=== PATIENT | female | born 1945 | race Caucasian/White ===

== ENCOUNTER 2016-04-22 23:39 | Inpatient (IN) | payer MEDICARE ==
[~2016-04-22] VITALS: Ht 170.2 cm; Wt 86.6 kg
--- NOTE | 2016-04-22 23:40 | ED.REPORT ---
HPI-Chest Pain 40 and Over Date of Service Apr 22, 2016 ED Provider: Drew Ramachandran MD Patient is a 70 year old female who presents to the ED via EMS after she developed severe chest pressure this evening. The patient requested that her family call 911, stating that she was having a heart attack. Patient was found to be diaphoretic and distressed, with the patient incontinent of urine and stool. Patient was not responsive to commands, fighting, and nonverbal. The patient refused aspirin. EKG showed changes consistent with an inferior wall OR and the STEMI team was called. She was bradycardic and mildly hypotensive enroute. Patient is able to speak on arrival to the ED but states that she does not understand what is happening. Patient denies a history of heart disease or prior myocardial infarction. Nursing Notes Stated Complaint: STEMI/CHEST PAIN Nursing Notes Reviewed: Yes General Time Seen by MD: 23:38 Chief Complaint Chest pressure Hx Obtained From: EMS Unable to Obtain Hx: Patient condition, Mental status Arrived By: Ambulance Sudden in Onset?: No Onset Occurred: Just prior to arrival Symptom Duration: Since onset Location: : Chest left: Chest right Quality: Painful Severity: Current: Severe Severity: Maximum: Severe Recent Healthcare: No recent doctor visit, No recent hospitalization Similar Sx Previous: No Past Medical History Past Medical History none reported Past Surgical History none reported Smoking History Unknown if Ever Smoker Social History Other Social History: Good social support, Local resident Unable to Obtain History Past medical history, Past surgical history Unable to Obtain Due to: Patient condition Review of Systems Unable to Obtain ROS Mental status Cardiovascular: Reports: Chest pain Skin: Reports Diaphoresis Neurologic: Reports: Bladder dysfunction, Bowel dysfunction Female: Reports: Incontinence Physical Exam Initial Vital Signs see paper chart Initial VS: Reviewed, Vital signs abnormal Head / Eyes: Atraumatic, Normocephalic, PERRL ENT: Conjunctiva normal, No scleral icterus General/Constitutional: Awake, Alert appears disoriented and is having difficulty answering questions incontinent of urine and stool Respiratory / Chest: Breath sounds NL, Breath sounds = bilat, No respiratory distress, No rales, No rhonchi, No wheezing Cardiovascular: Heart sounds NL, No gallop, No murmurs, No rubs Heart Rate / Rhythm: Positive: Bradycardia, Irregular rhythm (occasional PVCs) Abdomen: Soft, Non-tender, No guarding, No rebound Neck: Supple, No JVD Lower Extremity / Pelvis / MS: No swelling, Neurologic intact, Vascular intact , No edema brace left ankle Skin: Warm Color / Condition: Positive: Diaphoresis present Neurologic: No motor deficits, No sensory deficits, CN II - XII intact appears disoriented Upper Extremity / MS: No swelling, No edema Interpretation & Diagnostics Lab Results Interpretation Result Diagram: 04/22/16 2353 Test 04/22/16 23:53 White Blood Count 9.0th/mm3 (3.8-10.1) Red Blood Count 4.31mil/mm3 (3.90-5.20) Hemoglobin 13.0g/dL (12.0-15.6) Hematocrit 39.4% (35.0-46.0) Mean Corpuscular Volume 91.4fL (81-100) Mean Corpuscular Hemoglobin 30.2pg (27.0-35.0) Mean Corpuscular Hemoglobin Concent 33.0% (32.0-37.0) Red Cell Distribution Width 13.8% (12.3-15.4) Platelet Count 285bil/L (150-400) Neutrophils (%) (Auto) 49.5% (40-74) Lymphocytes (%) (Auto) 43.3% (14-46) Monocytes (%) (Auto) 5.5% (4-12) Eosinophils (%) (Auto) 1.1% (0-5) Basophils (%) (Auto) 0.4% (0-3) Troponin T 0.010ug/L (0.0-0.011) Lab values outside NL range: no clinical significance. ECG Interpretation ECG Interpretation: Acute inferior wall OR AV block, complete (third degree) Incomplete right bundle branch block LVH with IVCD, LAD and secondary repol abn Anterior ST elevation Time: 23:50 Interpreted by: ED physician X-Ray Chest Interpretation Chest Xray Interpretation: Impression: No acute cardiopulmonary process. View: Portable Interpretation / Wet Read by: Wet read ED physician Re-Eval/Medical Decision Med Decision/Clinical Course 70-year-old female who had onset of crushing substernal chest pain or some confusion and incontinence. She was found to have a inferior lateral STEMI. She was bradycardic and hypotensive. She was at one point combative. EKG upon arrival here confirmed inferior OR. Dr. Orr was notified and the cath team was activated. She was given aspirin Plavix 600 and IV heparin. She was not given nitrates or metoprolol because of her hypotensive and cardiac. Dr. Orr arrived to assume care of this patient and took her to the Branch Employment Coordinator. Time of Eval: 23:59 Re-Evaluation/Progress Note: Rechecked the patient. She reports ongoing chest pressure. Patient is able to clarify that she lives with her grandson. Time of Eval: 00:06 Re-Evaluation/Progress Note: Rechecked the patient with Dr. Crespo. Patient will be taken to the wharf laborer and be admitted to the hospital. Consultation : Referral / Consult Name: Nancy Christian MD Consulted With: Cardiology Call Returned at: 00:06 Bill Recapitulation Clerk: Will see patient, Agrees with eval, Agrees with plan, Requested wharf laborer Note: Dr. Crespo, cardiology, is present in the ED. He will take the patient to the wharf laborer. Counseled Regarding: Diagnosis, Lab results, Need for admission Discharge & Departure Primary Impression: STEMI (ST elevation myocardial infarction) Involved coronary artery: unspecified coronary artery Qualified Code: I21.3 - ST elevation (STEMI) myocardial infarction of unspecified site Disposition: ADMITTED TO HOSPITAL Discharge Condition All VS Reviewed: Yes Condition: Stable Crit Care Except Billable Proc Time Spent: 30-74 minutes Services Performed: Patient management by me, Time spent at bedside, Reviewing test results, Reviewing imaging, Discussing patient care, Documentation in record, Time with fam/surrogate Critical Care Notes: Bradycardic and hypotensive patient with STEMI taken to the Branch Employment Coordinator. Leatha Attestation Portions of this note were transcribed by Mae Young. I, Dr. Ramachandran personally performed the history, physical exam and medical decision-making; I reviewed and confirmed the accuracy of the information in the transcribed note. Signed by: Leatha Carpenter, 04/23/2016 0019 Drew Ramachandran MD Apr 22, 2016 23:40 Mae Young Apr 22, 2016 23:51
[2016-04-22] MEDS ORDERED: MeTOProlol 1 mg/mL 5 mL Inj ONE (23:42)
[2016-04-22] MEDS ORDERED: Nitroglycerin 50,000 mcg/250 mL D5W Premix IV ONE ×2 (23:42→23:54)
[2016-04-22] MEDS ORDERED: Nitroglycerin 2% 1 Gm Ointment TOPICAL ONE (23:42)
[2016-04-22] MEDS ORDERED: Ondansetron 2 mg/mL 2 mL Inj ONE (23:43)
[2016-04-22] MEDS ORDERED: Heparin 5,000 Unit/mL Inj ONE (23:44)
[2016-04-22 23:46] VITALS: BP 90/47; PULSE 44; RESP 21; O2SAT 95
[2016-04-22] MEDS ORDERED: Heparin 1,000 Units/500 mL NS Premix IV ONE (23:53)
[2016-04-22] MEDS ORDERED: Heparin 1,000 Unit/mL 10 mL Inj ONE (23:54)
[2016-04-22] MEDS ORDERED: Atropine 1 mg/10 mL (Code) Syringe ONE (23:54)
[2016-04-22] MEDS ORDERED: 0.9% Sodium Chloride 1,000 ML ONE (23:54)
[2016-04-22] MEDS ORDERED: Phenylephrine/NS-PF 100 mCg/mL 5 mL Syringe IVPUSH ONE (23:54)
[2016-04-22] MEDS ORDERED: Heparin 5,000 Units/500 mL NS Premix IV ONE (23:59)
[2016-04-23] VITALS (29 sets, daily range): BP systolic 103–152; BP diastolic 47–95; PULSE 59–75; RESP 12–25; O2SAT 95–99
[2016-04-23] LABS: BASOPHILS % (AUTO) 0.4 % (0-3); EOSINOPHILS % (AUTO) 1.1 % (0-5); MONOCYTES % (AUTO) 5.5 % (4-12); Mean Corpuscular Hemoglobin 30.2 pg (27.0-35.0); Mean Corpuscular Volume 91.4 fL (81-100); NEUTROPHILS % (AUTO) 49.5 % (40-74); Platelet Count 285 bil/L (150-400)
[2016-04-23 00:20] LABS: INR 0.94 ratio
[2016-04-23] MEDS ORDERED: fentaNYL-PF 50 mCg/mL 2 mL Inj ONE (00:22)
[2016-04-23 00:24] LABS: TROPONIN T 0.01 ug/L (0.0-0.011)
[2016-04-23] MEDS ORDERED: Heparin 1,000 Unit/mL 10 mL Inj ONE (00:37)
[2016-04-23] MEDS ORDERED: Ondansetron 2 mg/mL 2 mL Inj IVPUSH PRN (01:45)
[2016-04-23] MEDS ORDERED: Polyethylene Glycol (PEG) 17 Gm Powder PO PRN (01:45)
[2016-04-23] MEDS ORDERED: Alum-Mag Hydrox-Simeth 30 mL Suspension PO PRN (01:45)
[2016-04-23] MEDS ORDERED: Atropine 1 mg/10 mL (Code) Syringe IVPUSH PRN (02:45)
[2016-04-23] MEDS ORDERED: 0.9% Sodium Chloride 1,000 ML IV ONE (02:45)
[2016-04-23] MEDS ORDERED: Sodium Chloride LOK Flush 10 mL Syringe IVFLUSH PRN (02:45)
[2016-04-23] MEDS ORDERED: 0.9% Sodium Chloride 250 ML BOLUS IV PRN (02:45)
[2016-04-23 04:17] LABS: Magnesium 1.8 mg/dL (1.6-2.6)
[2016-04-23 04:23] LABS: TROPONIN T 3.37 ug/L (0.0-0.011)
--- NOTE | 2016-04-23 05:20 | DI95 ---
[address] [address] INTERVENTIONAL CARDIAC CATHETERIZATION PATIENT: TIFFANY BURROUGHS : 1945 MR#: [id number] ADMIT: 04/22/2016 JOB ID: [id number] CORRECTED REPORT DATE OF PROCEDURE: 04/23/2016 PATIENT PROFILE: The patient is a 70-year-old lady who presented with acute inferolateral myocardial infarction. PROCEDURE: 1. Temporary transvenous pacer placement. 2. Retrograde left heart catheterization. 3. Selective coronary angiography. 4. Balloon angioplasty and stenting to the proximal right coronary artery. 5. Left ventricular angiogram. VASCULAR CLOSURE DEVICE: StarClose. COMPLICATIONS: None. METHOD: Arterial and central venous access was obtained from the right groin under 1% lidocaine local anesthesia using a 6-Cypriot sheath in the artery and a 5-Cypriot sheath int the venous. This was performed under ultrasound guidance. A 5- Cypriot temporary transvenous wire was directed into the right ventricular apex under fluoroscopy. The temporary transvenous pacer was then set at 75 beats per minute. Selective coronary angiogram was performed in multiple projections, including cranial and caudal angulations with hand injected contrast via JL4 and JR4 catheters. A JR4 guide was advanced to the right coronary ostium. A Runthrough wire was placed inside the right coronary artery. The proximal right coronary artery lesion was pre-dilated with a 2.0, 2.5 and a 3.0 mm balloons. A Resolute Integrity 2.5 x 22 mm stent was placed inside the proximal mid right coronary artery lesion and deployed at 14 atmospheres for 20 seconds. Another Resolute Integrity 2.5 x 22 mm stent was placed proximal to the first stent and deployed at 14 atmospheres for 20 seconds. A 3.0 x 20 mm balloon was used for post stent deployment dilation. It was inflated up to 12 atmospheres inside the stent and 16 atmospheres to flare out the right coronary ostium. A 5-Cypriot angulated pigtail catheter was advanced to the left ventricle and left ventricular angiogram was performed in the 30-degree SHOOK view by injecting contrast at a rate of 10 cc/second for 3 seconds. This catheter was withdrawn. Right femoral angiogram was performed before sheath removal. Hemostasis was achieved by using a StarClose device. The patient tolerated the procedure well. She was transferred to the intensive care unit in good condition. TOTAL CONTRAST USED: 140 cc. FLUOROSCOPY TIME: 7.9 minutes. TOTAL RADIATION DOSE: 287 milligray. RESULTS: 1. Successful temporary transvenous pacer placement. 2. Selective coronary angiogram: a. Left main coronary artery is normal. b. The left anterior descending artery is transapical and has mild to moderate calcification in the proximal portion with eccentric 30% stenosis in the proximal portion and 50% stenosis in the mid portion and 60% stenosis in the distal portion. c. The circumflex and obtuse marginal branches are small and has 30% stenosis. d. The dominant right coronary artery is occluded at its origin. 3. Balloon angioplasty and stenting was performed to the occluded right coronary artery ostium by deploying two drug-eluting stents, (2.5 x 22 mm and 2.5 x 22 mm with a 3.0 mm balloon for post stent dilation) to achieve an excellent angiographic result with REYNALDO-3 flow distally. 4. There is no gradient across the aortic valve on catheter withdrawal. 5. Aortic pressure is 114/60 mmHg. Left ventricular pressure is 119/0 mmHg. 6. Left ventricular end-diastolic is 19 mmHg. 7. Left ventricular angiogram demonstrated near-normal left ventricular systolic function (LVEF 62%). The middle third of the inferior wall is severely hypokinetic. The remaining segments contract normally. CONCLUSION: 1. Moderate disease of the left anterior descending and circumflex artery. 2. Occluded right coronary ostium and this was successfully treated with two drug-eluting stents. 3. LVEF 62% with the middle third of the inferior wall severely hypokinetic. 4. Left ventricular end-diastolic is 19 mmHg. Note: The door to balloon time was delayed for 15 minutes for cleaning as the patient moved her bowel. Corrected by 06/03/16 at 9:37am DOS. MTDD
--- NOTE | 2016-04-23 06:08 | NUR ---
Admit note: Post cath Admitted to CCU 2018 from laboratory machinist at 0200. Denies chest pain or discomforts. Right groin site stable without hematoma or bleeding. Right groin venous sheath in place with pacer wires in place with temp pacer off. Tele sinus rhythm with hr 70s. Sats high 90s. Ivf NS started 100ml/h. Alert and oriented upon admit. Salvatore Pyle, called and updated per pt request. Post cath checks completed 0600. Remains on precautions with venous sheath. Plans to d/c pacer this am.
--- NOTE | 2016-04-23 06:56 | HP ---
[address] [address] HISTORY AND PHYSICAL PATIENT: TIFFANY BURROUGHS : 1945 MR#: [id number] ADMIT: 04/22/2016 JOB ID: [id number] CHIEF COMPLAINT: Chest discomfort. HISTORY: The patient is a 70 years old lady who has been healthy all her life. She is a lifelong smoker. The patient was in her usual state of health until this evening when she suddenly developed chest discomfort. It was pressure type. She rated it about 8 to 9/10. It was associated with dyspnea and nausea. She told her grandson to call medics because she thought that she was having a heart attack. EKG by the medics at 11:30 p.m. showed sinus bradycardia with complete heart block with a ventricular escape rate of 40 beats per minute. Inferior ST-segment elevation. STEMI protocol was activated. The patient arrived in the emergency department at 11:47 p.m. EKG showed sinus rhythm with complete heart block, right bundle branch block. Inferolateral ST-segment elevation. PAST MEDICAL HISTORY: None. MEDICATIONS PRIOR TO HOSPITALIZATION: None. ALLERGIES: PENICILLIN. SOCIAL HISTORY: She started smoking when she was 25 years old. She smoked an average of about one pack per day. She stated she smoked about 30 years and still smokes. She denies alcohol. FAMILY HISTORY: Her father from congestive heart failure. REVIEW OF SYSTEMS: Unobtainable due to the urgency of clinical situation. PHYSICAL EXAMINATION: Reveals an elderly, overweight lady, appears drowsy. Temperature is 35.8. Blood pressure is 98/54. Pulse is 38. Skin is cool and moist. Head and face have normal configuration. Anicteric sclerae. Dry mucosa. Neck supple. No jugular venous distention or carotid bruits. Chest: Normal expansion. Lungs are clear to auscultate. Heart: Distant heart sounds. No murmur. Abdomen: Obese, nontender. Extremities: Clubbing present. No cyanosis or edema. Neurology: Drowsy but responds to verbal command. IMPRESSION: 1. Acute inferolateral myocardial infarction. 2. Complete heart block with ventricular escape rate of 38 beats per minute. 3. Nicotine addiction. 4. Unknown lipid status. 5. Overweight. PLAN: The patient will undergo emergent coronary angiogram and possible percutaneous intervention. She will also receive a temporary transvenous pacemaker. BRANDON
--- NOTE | 2016-04-23 08:11 | DRSVH ---
PROCEDURE: X-RAY CHEST ONE VIEW, PORTABLE ([id number]) INDICATIONS: CHEST PAIN, STEMI TECHNIQUE: One view of the chest was acquired. COMPARISON: None. FINDINGS: Surgical changes and devices: None. Lungs and pleura: No pleural effusions or pneumothorax. Lungs are clear. Mild scattered scarring/a telectasis Mediastinum: Mediastinal contours appear normal. Heart size is normal. Bones and chest wall: No suspicious bony lesions. Overlying soft tissues appear unremarkable. IMPRESSION: No acute disease Dictated by: Marlon Figueroa M.D. on 04/23/2016 at 8:09 Approved by: Marlon Figueroa M.D. on 04/23/2016 at 8:09
[2016-04-23 10:32] LABS: TROPONIN T 8.05 ug/L (0.0-0.011)
--- NOTE | 2016-04-23 11:46 | PROG NOTE ---
[address] [address] PROGRESS NOTE PATIENT: TIFFANY BURROUGHS : 1945 MR#: [id number] ADMIT: 04/22/2016 JOB ID: [id number] DATE: 04/23/2016 SUBJECTIVE: The patient is a 70-year-old lady who is a lifelong smoker. She presented with acute inferolateral myocardial infarction complicated by complete heart block yesterday. She underwent emergent angioplasty and stent placement to the occluded right coronary artery with two drug-eluting stents. The patient reports feeling much better today. She is tired and sleepy. She denies chest discomfort, orthopnea or PND. OBJECTIVE: Temperature is 36.5. Blood pressure is 139/75. Pulse 72. Body weight is 85.2 kg. Head and face have normal configuration. Anicteric sclerae. Moist mucosa. Neck: No jugular venous distention. Lungs are clear to auscultation. Heart: Distant heart sounds. No murmur. Extremities: Clubbing of fingers present. No cyanosis or edema. Neurologic: Grossly intact. BLOOD TESTS: Show hemoglobin 13.0, WBC 9.0, platelet 285. Sodium 140, potassium 3.8, chloride 102, bicarbonate 18, BUN 12, creatinine 0.96. Glucose 158. CK went up to 2,491 with a troponin T went up to 8.05. Cholesterol 227, triglycerides 75, HDL 54, LDL 158. IMPRESSION: 1. Acute inferolateral myocardial infarction, treated with two drug-eluting stents. 2. Complete heart block requiring temporary transvenous pacer, recover. 3. Nicotine addiction. 4. Hypercholesterolemia. 5. Overweight with BMI of 29.4 kg/m2. PLAN: Temporary transvenous pacer wire will be removed. The patient could be transferred to [facility]. I will start her on metoprolol 25 mg b.i.d. She will continue on aspirin, Plavix, RADHA inhibitor and statin. MTDD
--- NOTE | 2016-04-23 13:36 | NUR ---
Sheath removed/downgrade to PCC general production laborer assisted with removal of venous sheath of temporary pacer leads at 1210. Pt tolerated well, had 2 beats of v-tach during removal. Held pressure for 5 minutes, minimal bleeding. Dry gauze and bio-occlusive dressing applied. See post cath intervention and CCU flow sheet for vitals. Per Dr Sun, monitor for one hour then change to PCC. Report passed to Beverly Camacho RN.
[2016-04-23 15:39] LABS: TROPONIN T 6.89 ug/L (0.0-0.011)
[2016-04-24 00:23] VITALS: BP 123/59; PULSE 63; RESP 17; O2SAT 98
[2016-04-24 03:58] VITALS: BP 121/60; PULSE 58; RESP 19; O2SAT 97
[2016-04-24 05:10] LABS: BASOPHILS % (AUTO) 0.2 % (0-3); EOSINOPHILS % (AUTO) 0.9 % (0-5); MONOCYTES % (AUTO) 6.6 % (4-12); Mean Corpuscular Hemoglobin 29.8 pg (27.0-35.0); Mean Corpuscular Volume 90.4 fL (81-100); NEUTROPHILS % (AUTO) 65.1 % (40-74); Platelet Count 204 bil/L (150-400)
--- NOTE | 2016-04-24 05:29 | NUR ---
Rest and groin site. Patient rested well throughout the night and reported being free of pain. Patient was able to move to the bed side commode with the help of one person. Patient's groin site is free of bleeding and swelling. Patient denies pain. CMS is intact in all extremities.
[2016-04-24 06:08] VITALS: PULSE 61
[2016-04-24 09:29] VITALS: PULSE 60
--- NOTE | 2016-04-24 10:18 | NUR ---
Social Work: Initial Assessment D: Per EMR review, pt is a 70 year old female admitted for STEMI. Pt is Medicare with no LTC insurance or VA benefits. Pt does not have a PCP- information for [facility] provided to pt. NOK is Escobar Jernigan, Son, . Advanced directives not completed- information provided to pt. Readmit score is low, 02/21. REWORK OPERATOR met with pt at bedside. Sw role and contact information provided. See initial assessment. Pt lives at home with her grandson in a single-story home with 2 steps to enter. Pt is I with ADLs, uses no DME and continues to drive. Pt has never had HH or Skilled rehab. Pt denies any sw needs at d/c and states her son will transport her when ready. EMR reviewed, no needs or barriers identified at this time. A: Pt who is I at baseline. P: Anticipate pt to discharge home via POV once medically stable; REWORK OPERATOR to continue to follow CONNER Weiss Addendum: 04/24/16 at 1023 by SANDRA WOODRUFF Amended: Links added.
--- NOTE | 2016-04-24 10:24 | NUR ---
[facility] Signed
[2016-04-24 12:24] VITALS: BP 133/68; PULSE 61; RESP 18; O2SAT 98
--- NOTE | 2016-04-24 12:49 | DRSVH ---
Former[facility] [address] [address] Echocardiogram Report Name: TIFFANY BURROUGHS JStudy Date: 04/24/2016 Height: 67 in Hospital Exam Location: [facility] Weight: 191 lb Gender: Other BSA: 2. 0 m2 : 1945 Age: 70 yrs BP: 131 /62 mmHg Reason For Study: post-STEMI Ordering Physician: Performed By: Chris Peralta Referring Physician: BIJAN SIMON Interpretation Summary The left ventricle is normal in size. There is mild concentric left ventricular hypertrophy. The ejection fraction is estimated to be 55-60%. There is basal posterolateral wall mild hypokinesis. There is basal inferior wall mild hypokinesis. Assessment of diastolic parameters indicates normal left ventricular diastolic function and normal filling pressures. The right ventricular systolic pressure is estimated at 44 mmHg assuming a right atrial pressure of 15 mm Hg. The IVC is dilated (diameter is greater than 2.1 cm) and it collapses less than 50% with a sniff. This suggests a high right atrial pressure of 15 mm Hg. No other echocardiographic abnormalities seen. Procedure: A two-dimensional transthoracic echocardiogram with color flow and Doppler was performed. The study quality was technically adequate. A contrast injection of Definity was performed to improve assessment of LV function. There is no prior echocardiogram noted for this patient. The patient was in normal sinus rhythm during the exam. Left Ventricle: The left ventricle is normal in size. There is mild concentric left ventricular hypertrophy. The ejection fraction is estimated to be 55-60%. There is basal posterolateral wall mild hypokinesis. There is basal inferior wall mild hypokinesis. Assessment of diastolic parameters indicates normal left ventricular diastolic function and normal filling pressures. Right Ventricle: The right ventricle is normal size. Right ventricular systolic function is at the lower limits of normal. Atria: The left atrial size is normal. Right atrial size is normal. The interatrial septum is intact with no evidence for an atrial septal defect. Mitral Valve: The mitral valve leaflets appear borderline thickened, but open well. There is mild mitral annular calcification. There is mild mitral regurgitation. Aortic Valve: The aortic valve is normal in structure and function. No aortic regurgitation is present. Tricuspid Valve: The tricuspid valve is normal. There is mild tricuspid regurgitation. The right ventricular systolic pressure is estimated at 44 mmHg assuming a right atrial pressure of 15 mm Hg. Pulmonic Valve: The pulmonic valve is not well visualized. Great Vessels: The aortic root is normal size. The dimensions of the ascending aorta are normal. The pulmonary artery is normal size. The IVC is dilated (diameter is greater than 2.1 cm) and it collapses less than 50% with a sniff. This suggests a high right atrial pressure of 15 mm Hg. Pericardium/ Pleura There is no pericardial effusion. There is no pleural effusion. MMode/2D Measurements & Calculations LVIDd: 4.5 cm RA long axis: 4.8 cm LVOT diam LVIDs: 3.4 cm LA A2 area: 17.9 cm FS: 24.7 % LA A4 area: 19.9 cm RA area: 17.2 cm AoV Opening EPSS: 0.59 cm LA length (vol): 5.4 cm RA vol: 52.4 ml IVSd: 1.0 cm LA vol: 56.0 ml RA : 26.4 ml/m2 Ao root diam LVPWd: 1.1 cm LA vol index: 28.2 ml/m asc Aorta Diam IVC diam: 2.8 cm EDV(MOD-sp2) LV monzon. diameter/BSA LV sys. diameter/BSA TAPSE: 1.8 cm (cm/m^2): 2.3 (cm/m^2): 1.7 Doppler Measurements & Calculations Ao V2 max: 141.6 cm/secMV E max fredy MV E/A: 1.2 TR max fredy Ao max P.0 mmHg : 91.5 cm/sec Med Peak E' Fredy : 268.7 cm/sec Ao mean P.2 mmHg MV A max fredy TR max PG LVOT Max Fredy : 78.6 cm/sec E/E' med: 20.2 : 28.9 mmHg : 103.9 cm/sec Lat Peak E' Fredy PA V2 max : 81.3 cm/sec LUKE(I,D): 2.1 cm E/E' lat: 18.5 PA mean PG sev ratio: 0.68 E/e' average : 1.5 mmHg MV dec time: 0.20 sec Ao V2 mean LV V1 max PG PA V2 mean : 96.0 cm/sec : 58.6 cm/sec Ao V2 VTI LV V1 VTI: 19.5 cmPA pr(Accel) : 18.3 mmHg LUKE(V,D): 2.2 cm2 LUKE indexed to BSA (cm^2/m^2): 1.0 Reading Physician:12:49 PM
[2016-04-24] MEDS ORDERED: ATOR40TA69 PO (14:22)
[2016-04-24] MEDS ORDERED: LISI-571 PO (14:22)
[2016-04-24] MEDS ORDERED: ATEN50TA PO (14:22)
[2016-04-24] MEDS ORDERED: CLOP75TA28 PO (14:22)
--- NOTE | 2016-04-24 14:26 | PCM.DIMED ---
Discharge Instructions Date of Service Apr 24, 2016 Dates of Hospitalization Apr 22, 2016 at 23:58 Discharge Diagnosis Discharge Diagnosis Inferior Heart Attack with Drug coated stent to the right coronary artery Medication Instructions Take a regular adult aspirin every day in addition to your other medications Diet Heart Healthy Call your provider Shortness of breath, Chest pain Patient Instructions Follow-up plan Please call our office at [phone] and ask for an appointment with one of our PA's within the next two weeks. Follow-up Provider: Nancy Christian MD Follow-up with PCP in: 6 weeks Cardiac Rehab: 1 week Finn Daly MD Apr 24, 2016 14:26
--- NOTE | 2016-04-24 14:45 | NUR ---
Discharge Discharge instruction packet and prescriptions reviewed in detail w/ pt, including MD appt. for followup. VVS, up ambulating in brody x400ft without difficulty. Smoking Cessation teaching completed, packet given to pt. All belongings with pt; discharged via w/c accompanied by staff to waiting vehicle, driven by pt's son.
--- NOTE | 2016-04-24 16:02 | DIS ---
[address] [address] DISCHARGE SUMMARY PATIENT: TIFFANY BURROUGHS : 1945 MR#: [id number] ADMIT: 04/22/2016 JOB ID: [id number] DIS: 04/24/2016 DISCHARGE DIAGNOSES: Acute ST-elevation inferior myocardial infarction complicated by third-degree heart block. HOSPITAL COURSE: The patient presented by paramedics to [facility] late in the evening of April 22 with an acute inferior myocardial infarction complicated by third-degree heart block. A temporary transvenous pacemaker was placed by Dr. Christian, who subsequently then proceeded to the catheterization lab and found a totally occluded right coronary artery. She received a 2.5 x 22 mm stent in the proximal right coronary artery and a 2nd drug-coated stent, 2.5 mm x 22 mm placed proximal to the 1st stent and deployed. She was observed overnight and subsequently her temporary transvenous pacemaker lead was removed and she was ambulated. This morning she is feeling quite well. She has no problems from her right groin access and has been ambulatory in the hallway without any problems. She is anxious to go home. This patient will be discharged home on once-a-day medications since she is not used to taking any medication at home. DISCHARGE MEDICATIONS: Will include: 1. Atenolol 50 mg a day. 2. Atorvastatin 40 mg a day. 3. Lisinopril 5 mg a day. 4. Clopidogrel 75 mg daily. 5. She is also asked to take 325 mg of aspirin daily. She will be asked to contact our office to schedule a followup with our physician teacher assistant within the next couple of weeks and will follow up with Dr. Christian in 6-8 weeks. She will also be scheduled for outpatient cardiac rehab. She is encouraged to continue with smoking cessation and advised about the importance of taking her clopidogrel on a regular daily basis along with the rest of her medications.
== END 2016-04-24 15:07 | disposition home or self-care (01) | DRG 247 ==
LOC: SED 23:39 → CCU 23:58 → PCC 04-23 13:10
PROVIDERS: ADMIT Internal Medicine Interventional Cardiology; ATTEND Internal Medicine Interventional Cardiology
PROC: 027035Z Dilation of Coronary Artery, One Artery with Two Drug-eluting Intraluminal Devices, Percutaneous Approach (ICD-10-PCS; principal; 2016-04-23)
PROC: 4A023N7 Measurement of Cardiac Sampling and Pressure, Left Heart, Percutaneous Approach (ICD-10-PCS; 2016-04-23)
PROC: 5A1213Z Performance of Cardiac Pacing, Intermittent (ICD-10-PCS; 2016-04-23)
PROC: B2111ZZ Fluoroscopy of Multiple Coronary Arteries using Low Osmolar Contrast (ICD-10-PCS; 2016-04-23)
PROC: B2151ZZ Fluoroscopy of Left Heart using Low Osmolar Contrast (ICD-10-PCS; 2016-04-23)
DX: I21.19 ST elevation (STEMI) myocardial infarction involving other coronary artery of inferior wall (principal); I44.2 Atrioventricular block, complete; F17.210 Nicotine dependence, cigarettes, uncomplicated; I25.10 Atherosclerotic heart disease of native coronary artery without angina pectoris; E78.00 Pure hypercholesterolemia, unspecified

== ENCOUNTER 2016-07-26 17:02 | Inpatient (IN) | payer MEDICARE ==
[~2016-07-26] VITALS: Ht 170.2 cm; Wt 76.1 kg
[~2016-07-26 17:02] MED LIST: ATEN50TA PO; ATOR40TA69 PO; CLOP75TA28 PO; LISI-571 PO
--- NOTE | 2016-07-26 17:15 | ED.REPORT ---
HPI-General Illness Date of Service Jul 26, 2016 ED Provider: Dejan Meyers MD The patient is a 70 year old female with a history of STEMI s/p cardiac stenting who presents to the ED via EMS with a right-sided facial droop onset approximately 10:00 this morning, upon awakening. Associated symptoms include right arm weakness and speech change. The patient also reports waking up this morning to bilateral jaw pain and noticing that her teeth implants had fallen out, which she was unable to find. The patient denies shortness of breath, chest pain, abdominal pain, vision change, fever, cough, problems with ambulation, or other symptoms. Her symptoms have improved since onset. She has never had similar symptoms in the past. Nursing Notes Stated Complaint: STROKE Nursing Notes Reviewed: Yes Allergies: Coded Allergies: Penicillins (Verified Allergy, Severe, SWELLING, ANAPHYLAXIS, 07/26/16) codeine (Verified Adverse Reaction, Severe, Nausea,Vomiting, 07/26/16) Scheduled Atenolol (Atenolol) 50 Mg Tablet 50 MG PO DAILY Atorvastatin Calcium (Atorvastatin Calcium) 40 Mg Tablet 40 MG PO HS Clopidogrel (Clopidogrel) 75 Mg Tablet 75 MG PO DAILY Furosemide (Furosemide) 20 Mg Tab 10 MG PO QAM Lisinopril (Lisinopril) 5 Mg Tablet 10 MG PO QAM Scheduled PRN Melatonin (Melatonin) 3 Mg Tablet 3 MG PO HS PRN PRN Insomnia Nitroglycerin SL (Nitroglycerin SL) 0.4 Mg Tab.subl 0.4 MG SL Q5MIN PRN PRN For Chest Pain General Time Seen by MD: 17:12 Chief Complaint Weakness Hx Obtained From: Patient Arrived By: Ambulance Sudden in Onset?: Yes Onset Occurred: 5 - 8 hours ago Symptom Duration: Since onset Severity: Current: No pain currently Severity: Maximum: No pain Pertinent Negative: Relieved by nothing Recent Healthcare: No recent doctor visit Similar Sx Previous: No Past Medical History Past Medical History STEMI Past Surgical History Left heart catheterization. Balloon angioplasty and stenting to the proximal right coronary artery. Family History Her father from congestive heart failure. Smoking History Unknown if Ever Smoker Social History Other Social History: Good social support, Local resident Ambulatory Status Independent Review of Systems + Bilateral jaw pain, right-sided facial droop, speech change Full Review of Systems Constitutional: Denies: Fever Respiratory: Denies: Non-productive cough, Shortness of breath Cardiovascular: Denies: Chest pain GI: Denies: Abdominal pain, Diarrhea, Vomiting Neurologic: Reports: Focal weakness (Right arm ), Denies: Problem walking, Vision change Complete sys rev & neg: except as marked. Physical Exam Constitutional: Well-developed, well-nourished. Not diaphoretic. Head: Normocephalic and atraumatic. Mouth/Throat: Oropharynx is clear and moist. No oropharyngeal exudate. Eyes: EOM are normal. Pupils are equal, round, and reactive to light. Neck: Supple, no tracheal deviation. Cardiovascular: Normal rate, regular rhythm. Equal and intact distal pulses throughout. Pulmonary/Chest: Effort normal and breath sounds normal. No respiratory distress. Abdominal: Soft. No distension. There is no tenderness, rebound, or guarding. Musculoskeletal: Range of motion grossly intact. No edema or tenderness appreciated. Neurological: AOx3. Right-sided facial droop that does not include upper part of face. Mild right arm and right leg motor drifts. Decreased sensation in right upper extremity compared to the left. Equal sensation in bilateral lower extremities. Normal finger to nose testing. (NIHSS completed and noted below.) Skin: Warm and dry, no rashes or pallor appreciated. Psychiatric: Appropriate mood and affect. Behavior appears normal. Vital Signs Vital Signs Date Time Temp Pulse Resp B/P Pulse Ox O2 Delivery O2 Flow Rate FiO2 07/26/16 17:51 36.6 62 14 169/68 96 Room Air 07/26/16 17:36 64 18 175/81 97 Room Air Initial VS: Reviewed Interpretation & Diagnostics Bedside Blood Glucose at 17:28 * 136 mg/dl (80-150) PROCEDURE: CT ANGIO HEAD AND NECK IMPRESSION: 1. Focal, moderate grade stenosis within the inferior cavernous portion of the right internal carotid artery. 2. Mild stenosis of the more superior portions of the cavernous bilateral internal carotid arteries. 3. Apparent occlusion of the origin of the left vertebral artery. There is opacification of the distal left vertebral artery at the level of C3-4 raising the suspicion for retrograde flow through the left vertebral artery. If further characterization is warranted, carotid and vertebral artery duplex is recommended. 4. Extensive deep and periventricular white matter changes likely associated with chronic microvascular ischemia. Dictated by: Radha Kyle M.D. on 07/26/2016 at 19:22 Lab Results Interpretation Result Diagram: 07/26/16 1713 07/26/16 1713 Test 07/26/16 17:13 07/26/16 19:15 White Blood Count 9.6th/mm3 (3.8-10.1) Red Blood Count 4.71mil/mm3 (3.90-5.20) Hemoglobin 13.8g/dL (12.0-15.6) Hematocrit 42.8% (35.0-46.0) Mean Corpuscular Volume 90.9fL (81-100) Mean Corpuscular Hemoglobin 29.3pg (27.0-35.0) Mean Corpuscular Hemoglobin Concent 32.2% (32.0-37.0) Red Cell Distribution Width 15.8% (12.3-15.4) Platelet Count 275bil/L (150-400) Neutrophils (%) (Auto) 70.1% (40-74) Lymphocytes (%) (Auto) 24.5% (14-46) Monocytes (%) (Auto) 4.1% (4-12) Eosinophils (%) (Auto) 0.8% (0-5) Basophils (%) (Auto) 0.2% (0-3) Prothrombin Time 10.2sec (8.1-12.5) Prothromb Time International Ratio 0.95ratio Activated Partial Thromboplast Time 22.2sec (22.8-33.0) Sodium Level 140mEq/L (134-144) Potassium Level 3.9mEq/L (3.5-5.2) Chloride Level 101mEq/L (97-108) Carbon Dioxide Level 22mmol/L (18-29) Blood Urea Nitrogen 9mg/dL (8-27) Creatinine 0.90mg/dL (0.57-1.00) Estimat Glomerular Filtration Rate 88mL/min (>59) Glucose Level 140mg/dL (60-99) Calcium Level 9.2mg/dL (8.5-10.1) Total Bilirubin 0.4mg/dL (0.0-1.2) Aspartate Amino Transf (AST/SGOT) 29U/L (0-50) Alanine Aminotransferase (ALT/SGPT) 23U/L (0-32) Alkaline Phosphatase 116U/L (25-165) Troponin T < 0.010ug/L (0.0-0.011) Total Protein 7.2g/dL (6.4-8.4) Albumin 3.9g/dL (3.4-5.0) Urine Color Straw (YELLOW) Urine Appearance Hazy (CLEAR,HAZY) Urine pH 6.0 (5.0-8.0) Urine Specific [place] 1.005 (1.003-1.035) Urine Protein Negativemg/dL (NEG,TRACE) Urine Glucose (UA) Negativemg/dL (NEGATIVE) Urine Ketones Negativemg/dL (NEGATIVE) Urine Occult Blood Negative (NEGATIVE) Urine Nitrite Positive (NEGATIVE) Urine Bilirubin Negative (NEGATIVE) Urine Urobilinogen Normalmg/dL (NORMAL) Urine Leukocyte Esterase Negative (NEGATIVE) Urine RBC 0-2/hpf (0-2) Urine WBC 0-5/hpf (0-5) Urine Epithelial Cells Occasional/hpf (NONE-MOD) Urine Crystals None seen (NONE SEEN) Urine Bacteria Many/hpf (NONE-FEW) Urine Hyaline Casts None/lpf (NONE) Urine Granular Casts None seen (NONE SEEN) Urine Waxy Casts None seen (NONE SEEN) Urine Red Blood Cell Casts None seen (NONE SEEN) Urine White Blood Cell Casts None seen (NONE SEEN) Urine Mucus None seen (None Seen) Urine Trichomonas None seen (NONE SEEN) Urine Yeast None (NONE SEEN) Urinalysis Comment None Urine Culture Reflexed Indicated ECG Interpretation ECG Interpretation: Sinus rhythm rate 58 Probable left atrial enlargement Nonspecific T abnormalities, inferior leads T-wave inversion lead III Flattened T-wave in leads II and aVF Time: 18:27 Interpreted by: ED physician CT Head Interpretation IMPRESSION: 1. Focal hypodensity within the left frontal lobe suspicious for acute or subacute infarct. If further characterization is warranted, noncontrast MRI of the brain may be helpful. 2. Extensive deep white matter changes likely associated with chronic microvascular ischemic change. These findings were discussed with Dr. Meyers at 5:15 PM on 07/26/16. This study fulfills neurological imaging criteria for inclusion or exclusion of acute stroke therapies based on available published neurological guidelines. Dictated by: Radha Kyle M.D. on 07/26/2016 at 17:16 Study: Head CT no contrast Interpretation / Wet Read by: Interpret - Radiologist Re-Eval/Medical Decision Med Decision/Clinical Course In summary, 70-year-old female with a complex past medical history including previous STEMI status post stenting presenting to the ED for evaluation of right -sided facial droop and right sided weakness that started earlier today. Last known normal greater than 6 hours prior to arrival. Some of her symptoms seem to be improving per her report. Labs and imaging reviewed as noted. Consultations as per below; neurology to see the patient tomorrow. A CTA of the patient's head and neck were subsequently performed, demonstrated moderate stenosis within the right internal carotid artery, as well as apparent occlusion at the origin of the left vertebral artery. Discussed with the hospitalist service, who will admit for further management and evaluation, neurologic consult. Discussed with the patient length all questions answered, patient agreeable to the plan. Source of Hx: Old records Time of Eval: 18:55 Patient Status: Condition improved Re-Evaluation/Progress Note: Discussed with patient CT and lab results, diagnosis, and plan for admit. Patient agrees with plan for care and all questions were addressed. Consultation #1: Consulted With: Neurology Call Returned at: 17:53 Note: Resident for Dr. Bustillo: Will consult Dr. Bustillo and call back. Consultation #2: Consulted With: Neurology Call Returned at: 18:11 Makeup Editor: Will see patient (Tomorrow), Agrees with eval, Agrees with plan Note: Resident for Dr. Bustillo: Recommends CT angio head and neck with admission to hospitalist. Consultation #3: Referral / Consult Name: Justino Mckeon MD Call Returned at: 19:08 Makeup Editor: Agrees with eval, Agrees with plan, Accepts admit Counseled Regarding: Diagnosis, Lab results, Need for admission Discharge & Departure Primary Impression: Stroke CVA mechanism: stenosis Precerebral and cerebral artery: vertebral artery Laterality of affected vessel: left Qualified Code: I63.212 - Cerebral infarction due to unspecified occlusion or stenosis of left vertebral arteries Disposition: ADMITTED TO HOSPITAL Discharge Condition All VS Reviewed: Yes Condition: Improved Referrals: NOPCP (PCP) Cristalibeddy Attestation Portions of this note were transcribed by Nette Green. I, Dr. Meyers, personally performed the history, physical exam, and medical decision-making; I reviewed and confirmed the accuracy of the information in the transcribed note. Signed by: Leatha Weber, 07/26/2016, 19:59 Risk Factors NIH Stroke Scale Level of Consciousness: Alert and responsive (0) Ask Month & Age: Both questions right (0) Open/Close Eyes/Hand Brass Pickler: Performs both tasks (0) Horizontal EO Movements: None (0) Visual Doll: No visual loss (0) Facial Palsy: Minor paralysis (1) Right Arm Motor Drift (10s): Drift, not touch bed (1) Left Arm Motor Drift (10s): No drift 10 sec (0) Right Leg Motor Drift (5s): Drift, not touch bed (1) Left Leg Motor Drift (5s): No drift 5 sec (0) Limb Ataxia FNF/Heel-Dickerson: No ataxia (0) Sensation (Arms/Legs/Face): Pinprick less sharp (1) Language Aphasia: No aphasia, normal (0) Dysarthria: No dysarthria, normal (0) Extinction/Inattention: No exctinct/inattent (0) NIHSS Score: 4 Time NIHSS Performed: 17:34 Date NIHSS Performed: Jul 26, 2016 Dejan Meyers MD Jul 26, 2016 17:15 NETTE GREEN Jul 26, 2016 17:20
--- NOTE | 2016-07-26 17:26 | DRSVH ---
PROCEDURE: CT BRAIN (TPA) ([id number]) INDICATIONS: RIGHT SIDE WEAKNESS TECHNIQUE: Noncontrast 4.5 mm thick angled axial sections acquired from the foramen magnum to the vertex, with c oronal reformats. COMPARISON: [facility], CT, BRAIN W/O CONTRAST, 04/27/2006, 15:24. FINDINGS: Image quality: Excellent. CSF spaces: Basal cisterns are patent. No extra-axial fluid collections. The ventricles are symmet glo in size and shape. Brain: No intracranial bleeds or masses. There is moderate cerebral volume loss for age, with resul tant ventricular and sulcal prominence. There are extensive periventricular and deep white matter ch ronic small vessel ischemic changes. A focal hypodense region is present in the left lira radiata ( series 3, image 17). There is intracranial internal carotid artery atherosclerosis. Skull and face: Calvarium and visualized facial bones appear intact, without suspicious lesions. Sinuses: Visualized sinuses and mastoids are clear. IMPRESSION: 1. Focal hypodensity within the left frontal lobe suspicious for acute or subacute infarct. If furthe r characterization is warranted, noncontrast MRI of the brain may be helpful. 2. Extensive deep white matter changes likely associated with chronic microvascular ischemic change. These findings were discussed with Dr. Meyers at 5:15 PM on 07/26/16. This study fulfills neurological imaging criteria for inclusion or exclusion of acute stroke therapie s based on available published neurological guidelines. Dictated by: Radha Kyle M.D. on 07/26/2016 at 17:16 Approved by: Radha Kyle M.D. on 07/26/2016 at 17:24
[2016-07-26 17:27] LABS: BASOPHILS % (AUTO) 0.2 % (0-3); EOSINOPHILS % (AUTO) 0.8 % (0-5); MONOCYTES % (AUTO) 4.1 % (4-12); Mean Corpuscular Hemoglobin 29.3 pg (27.0-35.0); Mean Corpuscular Volume 90.9 fL (81-100); NEUTROPHILS % (AUTO) 70.1 % (40-74); Platelet Count 275 bil/L (150-400)
[2016-07-26 17:36] VITALS: BP 175/81; PULSE 64; RESP 18; O2SAT 97
[2016-07-26 17:41] LABS: INR 0.95 ratio
[2016-07-26 17:47] LABS: TROPONIN T < 0.010 ug/L (0.0-0.011)
[2016-07-26 17:51] VITALS: BP 169/68; PULSE 62; RESP 14; O2SAT 96
[2016-07-26] MEDS ORDERED: MELA3TAB35 PO (19:14)
[2016-07-26] MEDS ORDERED: LISI-571 PO (19:14)
[2016-07-26] MEDS ORDERED: FUR20 PO (19:14)
[2016-07-26] MEDS ORDERED: NITR0.4T6 SL (19:14)
[2016-07-26 19:37] LABS: APPEARANCE,URINE HAZY (CLEAR,HAZY); COLOR,URINE STRAW (YELLOW); OCCULT BLOOD,URINE NEGATIVE (NEGATIVE); UROBILINOGEN,URINE NORMAL (NORMAL)
--- NOTE | 2016-07-26 19:46 | DRSVH ---
PROCEDURE: CT ANGIO HEAD AND NECK (P) INDICATIONS: eval for stroke etc TECHNIQUE: Pre-contrast 4.5 mm thick sections acquired from the foramen magnum to the vertex. After the adminis tration of intravenous contrast, 1 mm thick sections acquired from the aortic arch through the Vivian of [place]. Post-contrast 4.5 mm thick sections then re-acquired from the foramen magnum to the vert ex. 3-dimensional wcxnfxt-czymkeivc-iuisvdjaoz (MIP) and/or volume rendering reformats were acquired of the central intracranial vasculature and neck separately. For radiation dose reduction, the foll owing was used: automated exposure control, adjustment of mA and/or kV according to patient size. COMPARISON: None. FINDINGS: Image quality: Excellent. BRAIN: CSF spaces: Ventricles are normal in size and shape. Basal cisterns are patent. No extra-axial flu id collections. Brain: No midline shift. No intracranial bleeds or masses. Hooker-white matter interface appears int act. Extensive deep and periventricular white matter changes are present consistent with extensive ch ronic microvascular ischemic changes. Skull and face: Calvarium and facial bones appear intact, without suspicious lesions. Orbits appear normal. Sinuses: Sinuses and mastoids are clear. HEAD CT ANGIOGRAPHY: Anterior circulation: Intracranial internal carotid arteries are normal in overall size and flow. A focal moderate grade stenosis is present within the inferior cavernous portion of the right internal carotid artery. Mild stenosis is present bilaterally within the superior cavernous portion of the pilar ateral internal carotid artery secondary to atheromatous calcification. The flow within the paired an terior cerebral arteries is normal and symmetric. The flow within the middle cerebral arteries is no rmal and symmetric. The anterior communicating artery is seen. No aneurysms are seen. Posterior circulation: Visualized portions of the vertebral arteries demonstrate normal caliber, and join to form a normal appearing basilar artery. Flow within the posterior cerebral arteries is norm al and symmetric. No aneurysms are seen. NECK CT ANGIOGRAPHY: Carotid system: The great vessels demonstrate a conventional anatomy as they arise from the aortic a rch. Dense atheromatous calcifications are present throughout the aortic arch. The origins of the com mon carotid arteries appear patent. The common carotid arteries demonstrate normal caliber and cours es. The bifurcation regions are both widely patent. Scattered atheromatous calcifications are presen t at the bilateral carotid bulbs without stenosis. The internal carotid arteries demonstrate normal calibers and courses. Posterior circulation: The origin of the right vertebral artery is widely patent. The origin of the l eft vertebral artery is nonvisualized and may be occluded. The right vertebral artery demonstrates no rmal course and caliber throughout. There is apparent reconstitution of the left vertebral artery at C3-4. The more superior extracranial portions of both vertebral arteries also demonstrate normal cour ses and calibers. They join to form a normal appearing basilar artery. Soft tissues: Visualized neck soft tissues demonstrate no suspicious abnormalities. Thyroid gland is unremarkable. Bones: No suspicious bony lesions. Visualized cervical spine appears normally aligned. IMPRESSION: 1. Focal, moderate grade stenosis within the inferior cavernous portion of the right internal carotid artery. 2. Mild stenosis of the more superior portions of the cavernous bilateral internal carotid arteries. 3. Apparent occlusion of the origin of the left vertebral artery. There is opacification of the dista l left vertebral artery at the level of C3-4 raising the suspicion for retrograde flow through the le ft vertebral artery. If further characterization is warranted, carotid and vertebral artery duplex is recommended. 4. Extensive deep and periventricular white matter changes likely associated with chronic microvascul ar ischemia. Dictated by: Radha Kyle M.D. on 07/26/2016 at 19:22 Approved by: Radha Kyle M.D. on 07/26/2016 at 19:45
[2016-07-26] MEDS ORDERED: Alum-Mag Hydrox-Simeth 30 mL Suspension PO PRN (19:55)
[2016-07-26] MEDS ORDERED: Labetalol 5 mg/mL 4 mL Inj IVPUSH PRN (19:55)
[2016-07-26] MEDS ORDERED: Polyethylene Glycol (PEG) 17 Gm Powder PO PRN (19:55)
[2016-07-26] MEDS ORDERED: hydrALAZINE 20 mg/mL Inj IVPUSH PRN (19:55)
[2016-07-26] MEDS ORDERED: Ondansetron 2 mg/mL 2 mL Inj IVPUSH PRN (19:55)
[2016-07-26 20:47] VITALS: BP 181/70; PULSE 63; RESP 16; O2SAT 95
[2016-07-26 21:04] VITALS: PULSE 66
[2016-07-26 21:06] VITALS: BP 176/78; PULSE 63; RESP 18; O2SAT 96
[2016-07-27] VITALS (7 sets, daily range): BP systolic 132–171; BP diastolic 78–81; PULSE 55–65; RESP 16–18; O2SAT 95–98
--- NOTE | 2016-07-27 00:01 | PCM.HPMED ---
Subjective Date of Service Jul 26, 2016 Primary Provider: Admitting Physician: Justino Mckeon MD Primary Care Physician: Parker Attending Physician: Justino Mckeon MD Admit Status: From the Emergency Department Chief Complaint: right sided weakness and trouble speaking History of Present Illness: 70-year-old female with past medical history remarkable for recent STEMI presents with right upper extremity weakness and noted dysarthria. The patient states that she went to bed last night at approximately 3 AM after reading a book and woke up this morning to find herself with difficulty using her right hand as well as drooling out of her mouth bilaterally and trouble pronouncing words. The patient states that while she was brushing her teeth in the mirror in the morning she noticed these at approximately 10 AM. The patient states that she is also woke up missing several implanted teeth and has been unable to locate them either. The patient denies any difficulty with ambulating including this morning. She states that she is recovered a lot of function in her right arm as well as she is speaking significantly more clearly than this morning. The patient states that she quit smoking approximately 3 weeks ago and has been taking her daily aspirin and Plavix for her recent heart attack. The patient has several family members including her mother and her maternal aunt who had blood clots in the past however both women were also diagnosed with cancer as well. The patient's father had a congenital heart defect of unknown etiology. She denies any recent leg swelling with associated pain and skin color changes. The patient denies any recent surgeries or other immobilization. Review of Systems: A comprehensive review of systems is obtained and all are negative except for what is included in the history of present illness. Allergies Coded Allergies: Penicillins (Verified Allergy, Severe, SWELLING, ANAPHYLAXIS, 07/26/16) codeine (Verified Adverse Reaction, Severe, Nausea,Vomiting, 07/26/16) Home Medications Lisinopril 20 mg daily Atenolol 50 mg daily Atorvastatin 40 mg daily at night Aspirin daily Clopidogrel 75 mg daily PMH Coronary artery disease s/p ST elevation myocardial infarction Cataracts . Surgical History Tonsillectomy Appendectomy Cholecystectomy Hysterectomy Cervical vertebrae requiring surgical decompression of brachial plexus Family History Father had a congenital heart defect as well as of a heart attack at 49 Daughter of a heart attack at 42 Brother had a heart attack in his 60s Mother had metastatic cancer and blood clots Maternal aunt had cancer and blood clots Social History Occupation: retired Hx Alcohol Use: No Hx Substance Use: No Smoking Status: Former Smoker (quit 3 weeks prior June 2016) Years of Smokin Living Arrangement: Alone (in [place]) Exam Vital Signs Vital Sign - Last Date Time Temp Pulse Resp B/P Pulse Ox O2 Delivery O2 Flow Rate FiO2 07/26/16 21:06 36.5 63 18 176/78 96 Room Air Exam Constitutional: Elderly female in no acute distress, Well-developed, well- nourished. Not diaphoretic. Eyes: Pupils equal round reactive to light, extraocular motion intact, peripheral visual garza intact HENT: Normocephalic and atraumatic, Oropharynx is clear and moist without central cyanosis or cobblestoning mucosa. No oropharyngeal exudate. Neck: Supple, no tracheal deviation, no noted carotid bruits or JVD Cardiovascular: Normal rate, regular rhythm. Equal and intact distal pulses throughout. Pulmonary/Chest: Effort normal and breath sounds normal. No respiratory distress. Abdominal: Soft. No distension. There is no tenderness, rebound, or guarding. Extremities: Without cyanosis clubbing or edema. Notable varicosities bilaterally in the legs Neurological: AOx3. Right-sided facial droop that does not include upper part of face. No noted arm or leg motor drifts. Decreased strength in right upper extremity compared to left and both aerodynamics engineer and biceps, strength intact bilaterally in lower extremities. Decreased Sensation in right upper extremity compared to the left. Equal sensation in bilateral lower extremities. Mild dysdiadochokinesia noted in right upper extremity compared to left. Normal finger to nose testing. Patient is able to ambulate without issue, and a negative Romberg test. Skin: Warm and dry, no rashes or pallor appreciated. Psychiatric: Appropriate mood and affect. Behavior appears normal. Lab and Diagnostics Result Diagram: 07/26/16 17107/26/16 171 X-Rays, CTs and MRIs CT ANGIO HEAD AND NECK (P) IMPRESSION: 1. Focal, moderate grade stenosis within the inferior cavernous portion of the right internal carotid artery. 2. Mild stenosis of the more superior portions of the cavernous bilateral internal carotid arteries. 3. Apparent occlusion of the origin of the left vertebral artery. There is opacification of the distal left vertebral artery at the level of C3-4 raising the suspicion for retrograde flow through the left vertebral artery. If further characterization is warranted, carotid and vertebral artery duplex is recommended. 4. Extensive deep and periventricular white matter changes likely associated with chronic microvascular ischemia. Dictated by: Radha Kyle M.D. on 07/26/2016 at 19:22 Approved by: Radha Kyle M.D. on 07/26/2016 at 19:45 CT BRAIN (TPA) IMPRESSION: 1. Focal hypodensity within the left frontal lobe suspicious for acute or subacute infarct. If further characterization is warranted, noncontrast MRI of the brain may be helpful. 2. Extensive deep white matter changes likely associated with chronic microvascular ischemic change. These findings were discussed with Dr. Meyers at 5:15 PM on 07/26/16. This study fulfills neurological imaging criteria for inclusion or exclusion of acute stroke therapies based on available published neurological guidelines. Dictated by: Radha Kyle M.D. on 07/26/2016 at 17:16 Approved by: Radha Kyle M.D. on 07/26/2016 at 17:24 Assessment & Plan 70-year-old female with past medical history remarkable for recent STEMI presents with right upper extremity weakness and facial droop with noted dysarthria. # Acute Ischemic cerebrovascular accident - Patient outside the standard window for possible TPA at presentation in the ED - Patient had a recent echocardiogram for a acute myocardial infarction without evidence of atrial fibrillation or septal defect - Patient has been on both aspirin and Plavix as well as high-dose atorvastatin given her recent myocardial infarction with percutaneous intervention - Patient recently quit smoking 3 weeks prior - Neurology consult and will see the patient 07/27/2016 - Continue outpatient medications including aspirin full dose daily, Plavix 75 mg daily, atorvastatin 40 mg at night - Echocardiogram with bubble study ordered as well as carotid and vertebral artery duplex ultrasound - Telemetry currently to monitor for possible atrial fibrillation - Depending on results of carotid and vertebral artery duplex ultrasound consider possible MR head and neck angiogram - The patient will be allowed permissive hypertension for approximately 24 hours with goal systolic blood pressure between 140 and 170, the patient will have her typical outpatient antihypertensives held for 24 hours - Labetalol and hydralazine available when necessary for extreme elevations in systolic blood pressure - Patient will be started on a SSRI Fluoxetine per Uptodate recommendations post CVA - Given family history of blood clots on maternal side will order hypercoagulable panels including antiphospholipid, complements 3 and 4, factor V activity, anticardiolipin, etc. - Patient does not seem to be a candidate for inpatient rehabilitation at this time given her subjective recovery of function # History of recent ST segment elevation myocardial infarction - Diagnosed in April 2016 with occluded right coronary ostium and this was successfully treated with two drug-eluting stents. - Patient states she has been compliant with all of her medications - Continue home medications including aspirin, Plavix, atorvastatin described above - Currently holding lisinopril for permissive hypertension given CVA diagnosis - Okay to continue atenolol as it has very limited effect on blood pressure - Repeat echocardiogram with bubble study GI prophylaxis: not indicated at this time DVT prophylaxis: Lovenox 40 mg daily CODE STATUS DNR/DNI The patient is admitted to inpatient status given presenting symptoms likely diagnosis possible complications and required treatments expected length of stay greater than to midnights. Pain Evaluation: Adequate Pain Control GI Prophylaxis: Not indicated VTE Prophylaxis Indicated: Meets Criteria for Anticoag Therapy VTE Prophylaxis: Sub-Q Enoxaparin VTE Mechanical Devices: Intermittant Pneumatic CD Resuscitation Status: DNR/DNI:Do Not Resuscitate/Intubate Attending Statement The patient was seen and examined together with Dr. Ohara on 07/26 and I agree with the history, exam and plan as outlined in the note above. Mian Key DO Jul 26, 2016 22:18 Justino Mckeon MD Jul 27, 2016 00:24 agree with the history, exam and plan as outlined in the note above. Mian Key DO Jul 26, 2016 22:18 Justino Mckeon MD Jul 27, 2016 00:24
[2016-07-27] MEDS ORDERED: cefTRIAXone Inj 2,000 MG in Dextrose 5% Minibag Plus 50 ML IV SCH (08:45)
[2016-07-27] MEDS ORDERED: 0.9% Sodium Chloride 250 ML ONE (10:11)
[2016-07-27] MEDS: Levofloxacin 500 mg/100 mL D5W IV SCH (10:22)
--- NOTE | 2016-07-27 10:58 | DRSVH ---
PROCEDURE: MRI STROKE PROTOCOL ([id number]) Pre- and post-contrast brain MRI, non-contrast brain MR angiogram, pre- and postcontrast neck MR jourdan ogram INDICATIONS: CVA TECHNIQUE: Brain: Noncontrast axial T1 spin echo, axial T2 fast spin echo, sagittal and axial FLAIR, coronal T2 fast spin echo, axial gradient echo, axial diffusion and ADC through the brain. After the administr ation of contrast, axial 3D VIBE of the cranial vasculature and brain. Brain MRA: Non-contrast 3-D time of flight MR angiogram, with multiple grxcywe-vrzeifzuz-npjktaoask (MIP) reformats performed. Neck MRA: Axial and sagittal TruFISP through the neck. Coronal dynamic MR angiogram during administ ration of contrast in the arterial and venous phases, with 3-dimenstional bktpkir-roryttsnf-bugodkamk n (MIP) reformats constructed from subtraction images. COMPARISON: [facility], CT, CT ANGIO BRAIN AND NECK, 07/26/2016, 18:51. [facility], CT, BRAIN (TPA), 07/26/2016, 17:12. FINDINGS: Image quality: Excellent. BRAIN: CSF spaces: There is mild cerebral volume loss with prominence of the ventricles and sulci. Basal ci sterns are patent. No extra-axial fluid collections. Brain: There is a focus of restricted diffusion in the periventricular white matter within the left lira radiata with associated T2 hyperintensity. Findings are consistent with an acute to early sub acute infarct no evidence of hemorrhagic conversion. No acute intracranial hemorrhage, mass, or mass effect. There are bilateral subcortical and periventricular foci of white matter T2 hyperintensity consistent with moderate chronic small vessel ischemic changes. Brainstem appears normal. Normal in travascular flow voids are present. No abnormal intracranial enhancement. Skull and face: Calvarial marrow signal is normal. Orbits appear normal. Sinuses: Sinuses and mastoids are clear. BRAIN MR ANGIOGRAM: Anterior circulation: There is mild narrowing in the cavernous segment of the right internal carotid artery. The joint carotid arteries appear grossly patent bilaterally. The flow within the paired an terior cerebral arteries is patent bilaterally. There is an absent A1 segment of the right anterior cerebral artery likely representing an anatomic variant. The more distal segments of the right anter ior cerebral artery are supplied through the anterior communicating artery from the left. The flow w ithin the middle cerebral arteries is patent bilaterally. No high-grade focal stenosis or occlusion. Posterior circulation: There is a diminutive distal left vertebral artery which joins with the right vertebral artery to form a patent basilar artery. The posterior cerebral arteries appear patent pilar aterally with the left posterior cerebral artery supplied through a posterior communicating artery, c onsistent with persistent circulation. No high-grade stenosis or occlusion. NECK MR ANGIOGRAM: Carotids: Great vessels demonstrate conventional anatomy as they arise from the aortic arch. The or igins of the common carotid arteries appear patent. The calibers and courses of both common carotid arteries are normal. The carotid bulbs appear widely patent. The internal carotid arteries demonstr ate normal course and caliber. Posterior circulation: There is a long segment occlusion or high-grade stenosis of the left vertebra l artery beginning approximately 0.5 cm from its origin and involving a segment of 7.5 cm in length. There is reconstitution of flow at the level of C3 with multifocal narrowing in the distal left uret er artery. This joins with a dominant right vertebral artery to form a patent basilar artery. Miscellaneous: Subclavian arteries appear patent. Pre-contrast images through the neck show no soft tissue abnormalities. IMPRESSION: BRAIN MRI: 1. Focal acute to early subacute infarct in the left lira radiata without evidence for hemorrhagic transformation. 2. Moderate chronic white matter small vessel ischemic changes and mild cerebral volume loss. BRAIN MR ANGIOGRAM: 1. No high-grade stenosis or occlusion of the central intracranial arteries. 2. Anatomic variants as noted including an absent A1 segment of the right anterior cerebral artery a nd persistent circulation of the left posterior cerebral artery. NECK MR ANGIOGRAM: 1. Segmental occlusion or high-grade stenosis of the left vertebral artery as described. 2. No stenosis in the carotid bulbs. Findings were discussed with Dr. Gr on 07/27/16 at 10:50 AM. The estimate of stenosis included in the report of the imaging study was calculated using the NASCET method Dictated by: Ernesto Cormier M.D. on 07/27/2016 at 10:11 Approved by: Ernesto Cormier M.D. on 07/27/2016 at 10:56
--- NOTE | 2016-07-27 12:17 | DRSVH ---
[facility] [address] [place] [address] Echocardiogram Report Name: TIFFANY BURROUGHS JStudy Date: 07/27/2016 Height: 67 in Hospital Exam Location: [facility] Weight: 172 lb Gender: Other BSA: 1.9 m2 : 1945 Age: 70 yrs BP: 167/79 mmHg Reason For Study: CVA Ordering Physician: Performed By: [facility] Interpretation Summary The left ventricle is normal in size, wall thickness, and systolic function without any focal wall motion abnormalities. The ejection fraction is estimated to be 60-65%. LVEF has not changed significantly. LV wall motion has improved. The right ventricle is normal in size, thickness and function. The right ventricular systolic pressure is estimated at 38 mmHg assuming a right atrial pressure of 3 mm Hg. The left atrium is moderately dilated. The right atrium is mildly dilated. Injection of contrast documented no interatrial shunt. The interatrial septum is intact with no evidence for an atrial septal defect. There is no significant valvular heart disease. The aortic root is normal size. Procedure: A two-dimensional transthoracic echocardiogram with color flow and Doppler was performed. The study quality was technically adequate. Comparison is made with the echocardiogram of 04-24-16. The patient was in normal sinus rhythm during the exam. Left Ventricle: The left ventricle is normal in size, wall thickness, and systolic function without any focal wall motion abnormalities. The ejection fraction is estimated to be 60-65%. Assessment of diastolic parameters indicates normal left ventricular diastolic function and normal filling pressures. Right Ventricle: The right ventricle is normal in size, thickness and function. Atria: The left atrium is moderately dilated. The right atrium is mildly dilated. Injection of contrast documented no interatrial shunt. The interatrial septum is intact with no evidence for an atrial septal defect. Mitral Valve: The mitral valve leaflets appear mildly thickened, but open well. There is trace mitral regurgitation. Aortic Valve: The aortic valve is trileaflet. The aortic valve opens well. No aortic regurgitation is present. Tricuspid Valve: The tricuspid valve is normal. There is trace tricuspid regurgitation. The right ventricular systolic pressure is estimated at 38 mmHg assuming a right atrial pressure of 3 mm Hg. Pulmonic Valve: The pulmonic valve is normal in structure and function. There is no pulmonic valvular regurgitation. There is no significant valvular heart disease. Great Vessels: The aortic root is normal size. The dimensions of the ascending aorta are normal. The IVC is of normal diameter and collapses greater than 50% with a sniff. This suggests a low right atrial pressure of 3 mm Hg. Pericardium/ Pleura There is no pericardial effusion. There is no pleural effusion. MMode/2D Measurements & Calculations LVIDd: 4.8 cm LA dimension: 3.6 cm RA long axis Ao root diam LVIDs: 3.4 cm FS: 30.3 % LA A2 area: 26.1 cm RA area Aortic Jxn IVSd: 1.1 cm LA A4 area: 21.9 cm LVPWd: 1.0 cm LA length (vol): 5.9 cm : 19.7 cm asc Aorta LA vol: 82.5 ml RA vol: 67.7 mlDiam: 3.0 cm LA vol index RA : 35.7 mm/ : 43.5 ml/m2 RVDd major : 5.3 cm LV monzon. diameter/BSA LV sys. diameter/BSA RVD1 (basal) RVD2 (mid) (cm/m^2): 2.6 (cm/m^2): 1.8 : 2.1 cm Doppler Measurements & Calculations Ao V2 max: 134.6 cm/secMV E max fredy MV E/A: 1.1 TR max fredy Ao max P.2 mmHg : 88.8 cm/sec Med Peak E' Fredy : 294.3 cm/sec Ao mean P.3 mmHg MV A max fredy TR max PG : 83.9 cm/sec E/E' med: 15.9 : 34.6 mmHg MV P1/2t Lat Peak E' Fredy PA V2 max : 48.4 msec : 103.1 cm/sec E/E' lat: 10.4 PA mean PG E/e' average PA Accel Time Pulm A Revs Dur : 0.17 sec MV A dur : 0.12 sec MV dec time: 0.16 sec MV P1/2t max fredy Ao V2 mean PA V2 mean : 82.4 cm/sec : 61.0 cm/sec MVA(P1/2t) Ao V2 VTI : 4.5 cm2 : 31.1 cm Pulm A Revs Dur - MV A Dur: -0.02 msec Reading Physician:PM
--- NOTE | 2016-07-27 21:03 | PCM.CHPMED ---
Subjective Date of Service: Jul 27, 2016 Provider requesting consult: Mian Key DO Primary Physician: Admitting Physician: Justino Mckeon MD Primary Care Physician: Parker Attending Physician: Justino Mckeon MD Chief Complaint: Chief Complaint: right facial droop, right upper extremity weakness and dysarthria History of Present Illness: Neurology Consult Note Patient is a 70 year old female with a history of smoking and coronary artery disease s/p recent STEMI on 04/22/16 who presents with right facial droop, right upper extremity weakness and dysarthria. She had woken up yesterday morning at around 10 AM with noted right hand weakness, right facial weakness, and difficulty pronouncing words. Her last known normal was at 3 AM that morning when she had gone to sleep. She reports she quit smoking 3 weeks ago and was taking Aspirin and Plavix at the time of this episode. She reports a family history of blood clots in her mother and maternal aunt, both of whom were diagnosed with cancer. Today, she reports continued right facial weakness and right upper extremity weakness, along with dysarthria. She denies any right leg weakness and states she can ambulate independently without any issues with balance. She denies dizziness, fainting, chest pain, shortness of breath, palpitations, vision changes. She reports a 20 lb weight loss since her STEMI in April, but attributes this to better eating habits and increased exercise. She denies fevers, chills, or night sweats. She denies any prior personal history of malignancy or clotting disorders. Review of Systems: Comprehensive review of systems conducted and was negative except for the pertinent positives listed above. PMH Past Medical History Coronary artery disease s/p ST elevation myocardial infarction Cataracts Bedside Blood Glucose: 136 Surgical History Tonsillectomy Appendectomy Cholecystectomy Hysterectomy Cervical vertebrae requiring surgical decompression of brachial plexus Allergies: Coded Allergies: Penicillins (Verified Allergy, Severe, SWELLING, ANAPHYLAXIS, 07/26/16) codeine (Verified Adverse Reaction, Severe, Nausea,Vomiting, 07/26/16) Family History Family History Father had a congenital heart defect as well as of a heart attack at 49 Daughter of a heart attack at 42 Brother had a heart attack in his 60s Mother had metastatic cancer and blood clots Maternal aunt had cancer and blood clots Social History Occupation: retired Hx Alcohol Use: NoHx Substance Use: No Smoking Status: Former Smoker (quit 3 weeks prior June 2016) Years of Smokin Living Arrangement: Alone (in [place]) Exam Vital Signs Vital Sign - Last Date Time Temp Pulse Resp B/P Pulse Ox O2 Delivery O2 Flow Rate FiO2 07/27/16 18:00 36.5 65 18 152/78 95 Room Air Intake and Output 07/26/16 07/26/16 07/27/16 Cumulative From/Thru 15:00 23:00 07:00 07/26/16 17:36 - 07/27/16 06:55 Intake Total 20 ml 1020 ml 1040 ml Output Total 1350 ml 1350 ml Balance 20 ml -330 ml -310 ml Intake Oral 1000 ml 1000 ml IV Total 20 ml 20 ml 40 ml Output Urine Total 1350 ml 1350 ml Additional Information: General: Alert, Oriented X3, Cooperative, No acute distress Head: Normocephalic, atraumatic. External ears normal. Eyes: PERRLA, EOMI. Anicteric sclerae. Mouth: Mouth normal, Mucous membranes moist/pink Neck: Neck supple with full range of motion. Chest& Lungs: Clear to auscultation bilaterally with no crackles, wheezes, or rhonchi. Cardiovascular: Regular rate/rhythm, Normal S1, Normal S2, No murmurs/rubs/ gallops Abdomen: Non-tender, Non-distended, No masses, Normoactive bowel tones, Soft Musculoskeletal: Normal range of motion Extremities: No cyanosis /edema bilaterally. Mild finger clubbing bilat. Neuro: Dysarthric speech. Strength 4/4 left arm and bilateral lower extremities. Strength 3/4 right upper extremity with wrist drop and parietal drift. Right facial droop with right tongue deviation. Sensation Intact, Finger- Nose and Heel-Dickerson normal, Reflexes Normal Lab and Diagnostics Result Diagram: 07/26/16 1713 07/26/16 1713 Assessment & Plan Assessment Patient is a 70 year old female with a history of smoking and coronary artery disease s/p recent STEMI on 04/22/16 who presents with right facial droop, right upper extremity weakness and dysarthria. Acute ischemic left frontal lobe stroke Patient presents with a left frontal lobe infarct with right sided weakness and speech difficulties. MRI angio showed high grade stenosis/occlusion of the left vertebral artery, with a focal acute to early subacute infarct in the left lira radiata without evidence for hemorrhagic transformation. This stroke occurred while on Aspirin and Plavix, and atorvastatin 80 mg. This is suspicious for cardioembolic stroke vs hypercoagulable state. However, echocardiogram showed no atrial septal defect, normal LV and RV, and moderate left atrial dilation so cardioembolic causes are less likely. She has a family history of clotting disorders associated with malignancy, but has no personal history of malignancy. She recently quit smoking within the month. CXR was fairly unremarkable, but consider chest CT with contrast. We also recommend full hypercoagulability workup. She reports recent weight loss, although this was apparently intentional. Recommend continuous monitoring with telemetry and possible outpatient cardiac monitoring if unrevealing. There is some evidence that suggests use of SSRIs after ischemic stroke may help with motor recovery and reduce dependency. - Continue Aspirin, Plavix, and atorvastatin 80 mg - Recommend hypercoagulability panel - Monitor on telemetry - Permissive hypertension for 24 hours - Regular neurologic checks - Recommend chest CT with contrast - Continue physical therapy and occupational therapy - Consider starting SSRI Possible acute seizure The morning of her stroke, the patient woke up and noticed several missing implanted teeth and jaw pain, which is suspicious for seizure upon onset of the stroke. Will rule out seizure activity with EEG. - EEG in morning Problems: Pain Evaluation: Adequate Pain Control GI Prophylaxis: Not indicated VTE Prophylaxis Indicated: Meets Criteria for Anticoag Therapy VTE Prophylaxis: Sub-Q Enoxaparin VTE Mechanical Devices: Intermittant Pneumatic CD Resuscitation Status: DNR/DNI:Do Not Resuscitate/Intubate Rufino Pabon Jul 27, 2016 21:03
--- NOTE | 2016-07-27 23:22 | PCM.PNMED ---
Subjective Date of Service Jul 27, 2016 Subjective Patient states that her speech has improved slightly and her right upper extremity weakness has improved slightly. No other new complaints. Exam Vital Signs Vital Sign - Last Date Time Temp Pulse Resp B/P Pulse Ox O2 Delivery O2 Flow Rate FiO2 07/27/16 21:30 36.4 55 16 171/81 98 Room Air Intake and Output 07/26/16 07/26/16 07/27/16 Cumulative From/Thru 15:00 23:00 07:00 07/26/16 17:36 - 07/27/16 06:55 Intake Total 20 ml 1020 ml 1040 ml Output Total 1350 ml 1350 ml Balance 20 ml -330 ml -310 ml Intake Oral 1000 ml 1000 ml IV Total 20 ml 20 ml 40 ml Output Urine Total 1350 ml 1350 ml Exam General: Patient is in no apparent distress. HEENT: Head is atraumatic and normocephalic. Eyes: Pupils are equally round and reactive to light and accommodation. Extraocular muscles are intact. Sclera are white, anicteric. Subconjunctival mucosa is pink. Ears and nose are unremarkable. Oropharynx: There is no mucosal lesions, there is no thrush, there is no pharyngitis. Neck: Is supple, there are no nodes, or masses or tenderness. Chest: Is clear to auscultation and percussion. There are no rales, rhonchi, wheezes or rubs. Heart: Rate, rhythm is regular. There is no murmur, rub or gallop. Abdomen: Good bowel sounds are present. Abdomen is soft, nontender, no organomegaly or masses were appreciated. Extremities: Are symmetrical and well perfused. There is no edema, there is no cellulitis, no rash. Neurologic: Patient's speech is slurred. His right facial droop. Right upper extremity strength is 3 over 4. Left upper extremity and bilateral lower extremity strength is 4 out of 4. There is no dysmetria Psychiatric: Patients mood is calm and shows no sign of agitation. Genital: Deferred Rectal: Deferred Lab and Diagnostics Result Diagram: 07/26/16171207/26/161712 Microbiology Name: TIFFANY BURROUGHS Age/Sex: 70/F Attend Dr: Justino Mckeon MD Acct: [id number] Unit: [id number] Status: ADM IN [place] [facility] [place] 3010-1 Re07/26/16 Disch: Specimen: [id number] Collected: 07/26/16 Status: RES Req#: [id number] Received: 07/26/16 Source: URINE CC Sp Desc : PP Natasha Dr: Dejan Meyers MD Ordered: URINE CULT Procedure Result Verified Site Microbiology EDDIE CULT URINE Preliminary 07/27/16 PRELIMINARY ID GRAM NEGATIVE ROBERTO ID AND SENS TO FOLLOW COLONY COUNT/QUANTITY >100,000 CFU/ml X-Rays, CTs and MRIs CT ANGIO HEAD AND NECK (P) IMPRESSION: 1. Focal, moderate grade stenosis within the inferior cavernous portion of the right internal carotid artery. 2. Mild stenosis of the more superior portions of the cavernous bilateral internal carotid arteries. 3. Apparent occlusion of the origin of the left vertebral artery. There is opacification of the distal left vertebral artery at the level of C3-4 raising the suspicion for retrograde flow through the left vertebral artery. If further characterization is warranted, carotid and vertebral artery duplex is recommended. 4. Extensive deep and periventricular white matter changes likely associated with chronic microvascular ischemia. Dictated by: Radha Kyle M.D. on 07/26/2016 at 19:22 Approved by: Radha Kyle M.D. on 07/26/2016 at 19:45 CT BRAIN (TPA) IMPRESSION: 1. Focal hypodensity within the left frontal lobe suspicious for acute or subacute infarct. If further characterization is warranted, noncontrast MRI of the brain may be helpful. 2. Extensive deep white matter changes likely associated with chronic microvascular ischemic change. These findings were discussed with Dr. Meyers at 5:15 PM on 07/26/16. This study fulfills neurological imaging criteria for inclusion or exclusion of acute stroke therapies based on available published neurological guidelines. Dictated by: Radha Kyle M.D. on 07/26/2016 at 17:16 Approved by: Radha Kyle M.D. on 07/26/2016 at 17:24 Cardiac Echo Impressions Echocardiogram Report Name: TIFFANY BURROUGHS JStudy Date: 0 07/27/2016 Height: 67 in Hospital Exam Location: [facility] Weight: 172 lb Gender: Other BSA: 1.9 m2 : 1945 Age: 70 yrs BP: 167/79 mmHg Reason For Study: CVA Ordering Physician: Performed By: [facility] Interpretation Summary The left ventricle is normal in size, wall thickness, and systolic function without any focal wall motion abnormalities. The ejection fraction is estimated to be 60-65%. LVEF has not changed significantly. LV wall motion has improved. The right ventricle is normal in size, thickness and function. The right ventricular systolic pressure is estimated at 38 mmHg assuming a right atrial pressure of 3 mm Hg. The left atrium is moderately dilated. The right atrium is mildly dilated. Injection of contrast documented no interatrial shunt. The interatrial septum is intact with no evidence for an atrial septal defect. There is no significant valvular heart disease. The aortic root is normal size. Assessment & Plan 70-year-old female with past medical history remarkable for recent STEMI presents with right upper extremity weakness and facial droop with noted dysarthria. # Acute Ischemic cerebrovascular accident - Patient outside the standard window for possible TPA at presentation in the ED - Patient had a recent echocardiogram for a acute myocardial infarction without evidence of atrial fibrillation or septal defect - Patient has been on both aspirin and Plavix as well as high-dose atorvastatin given her recent myocardial infarction with percutaneous intervention - Patient recently quit smoking 3 weeks prior - Neurology consult and will see the patient 07/27/2016. Appreciate their time and expertise. - Continue outpatient medications including aspirin full dose daily, Plavix 75 mg daily, atorvastatin 40 mg at night - Echocardiogram with bubble study ordered as well as carotid and vertebral artery duplex ultrasound - Telemetry currently to monitor for possible atrial fibrillation - Depending on results of carotid and vertebral artery duplex ultrasound consider possible MR head and neck angiogram - The patient will be allowed permissive hypertension for approximately 24 hours with goal systolic blood pressure between 140 and 170, the patient will have her typical outpatient antihypertensives held for 24 hours - Labetalol and hydralazine available when necessary for extreme elevations in systolic blood pressure - Patient will be started on a SSRI Fluoxetine per Uptodate recommendations post CVA - Given family history of blood clots on maternal side will order hypercoagulable panels including antiphospholipid, complements 3 and 4, factor V activity, anticardiolipin, etc. - Patient does not seem to be a candidate for inpatient rehabilitation at this time given her subjective recovery of function # History of recent ST segment elevation myocardial infarction - Diagnosed in April 2016 with occluded right coronary ostium and this was successfully treated with two drug-eluting stents. - Patient states she has been compliant with all of her medications - Continue home medications including aspirin, Plavix, atorvastatin described above - Currently holding lisinopril for permissive hypertension given CVA diagnosis and will likely restart in a.m. - Okay to continue atenolol as it has very limited effect on blood pressure - Repeat echocardiogram with bubble study failed to reveal any significant findings. GI prophylaxis: not indicated at this time DVT prophylaxis: Lovenox 40 mg daily CODE STATUS DNR/DNI Disposition: Patient will likely be here another 24-48 hours for further evaluation and treatment of the above problems. Appreciate neurology consultation and there time and expertise. Pain Evaluation: Adequate Pain Control GI Prophylaxis: Not indicated VTE Prophylaxis: Sub-Q Enoxaparin VTE Mechanical Devices: Intermittant Pneumatic CD Resuscitation Status: DNR/DNI:Do Not Resuscitate/Intubate Thanh Gr MD Jul 27, 2016 23:22
[2016-07-28] VITALS (7 sets, daily range): BP systolic 144–177; BP diastolic 67–93; PULSE 54–62; RESP 16–18; O2SAT 94–97
[2016-07-28 05:58] LABS: BASOPHILS % (AUTO) 0.2 % (0-3); EOSINOPHILS % (AUTO) 1.9 % (0-5); MONOCYTES % (AUTO) 7.2 % (4-12); Mean Corpuscular Volume 90.7 fL (81-100); NEUTROPHILS % (AUTO) 58.3 % (40-74); Platelet Count 235 bil/L (150-400)
[2016-07-28 06:29] LABS: Magnesium 1.9 mg/dL (1.6-2.6)
[2016-07-28] MEDS: Levofloxacin 500 mg/100 mL D5W IV SCH (08:13)
--- NOTE | 2016-07-28 09:53 | DRSVH ---
PROCEDURE: CT CHEST WITH CONTRAST ([id number]) INDICATIONS: Smoker with new CVA Possible Malignancy TECHNIQUE: After the administration of intravenous contrast, 5 mm thick sections acquired from the pulmonary api david to the posterior costophrenic angles. 7 mm thick coronal and sagittal MIP reformats were acquire d. For radiation dose reduction, the following was used: automated exposure control, adjustment of mA and/or kV according to patient size. COMPARISON: [facility], MR, MR STROKE PROTOCOL, 07/27/2016, 9:23. FINDINGS: Image quality: Diagnostic. Lungs and pleura: Centrilobular emphysematous changes are noted within the bilateral lung apices, pre dominantly. No focal consolidation, effusion, or pneumothorax is identified. Mild scarring/atelecta sis within the posterior bilateral lung bases is identified. There is no lung mass. Vague areas of groundglass attenuation are seen within the bilateral upper lo bes, ranging in size from approximately 5-10 mm (image 12, 15, 21, 22, and 24 colon series 2). Addit ional areas of groundglass attenuation within the bilateral upper lobes may be present. No definable or definite solid nodules are present. Mediastinum: Heart size is normal. No pericardial effusion. Borderline prominent lymph nodes withi n the mediastinum and right hilum are present. The largest lymph node is located within the subcarin al region and measures 1.3 x 2.3 cm. A right hilar lymph node at the same level measures 1.4 x 1.4 c m (image 28, series 2). Thoracic aorta and central pulmonary arteries are normal in size. There is coronary and aortic atherosclerosis. Esophagus is normal in caliber. No hiatal hernia. Bones and chest wall: No suspicious bony lesions. No vertebral body compression fractures. No axil martínez or supraclavicular adenopathy by size criteria. Thyroid gland is not enlarged. Abdomen: Included portions of the upper abdomen demonstrate enlargement of the left adrenal gland, me asuring 2.5 x 1.5 cm (image 62, series 2). There also is moderate intrahepatic and severe extrahepat ic biliary dilatation with the common bile duct measuring up to 1.7 cm in diameter. No significant d ilatation of the imaged portions of the main pancreatic duct are appreciated. IMPRESSION: 1. No convincing evidence of malignancy within the chest. 2. Small bilateral upper lobe regions of groundglass attenuation are of doubtful significance and ma y be related to subacute or resolving infection. An atypical form of malignancy is felt to be unlike ly, but cannot be excluded. A short interval followup CT of the chest in 3 months is recommended. 3. Mildly enlarged mediastinal and right hilar lymph nodes. 4. Marked intra-/extrahepatic biliary dilatation is not adequately evaluated on this exam. If the p atient's liver function tests are persistently elevated and/or increasing, please consider MRCP for f urther evaluation. 5. Indeterminate left adrenal mass. This may be better evaluated on MRI. 6. Centrilobular emphysema without acute cardiopulmonary process evident. Dictated by: Marcel Wilson M.D. on 07/28/2016 at 9:40 Approved by: Marcel Wilson M.D. on 07/28/2016 at 9:51
--- NOTE | 2016-07-28 20:02 | PCM.PNMED ---
Subjective Date of Service Jul 28, 2016 Subjective Neurology Consult Note Patient is a 70 year old female with a history of smoking and coronary artery disease s/p recent STEMI on 04/22/16 who presents with right facial droop, right upper extremity weakness and dysarthria. She reports she quit smoking 3 weeks ago and was taking Aspirin and Plavix at the time of this episode. She reports a family history of blood clots in her mother and maternal aunt, both of whom were diagnosed with cancer. Today, she reports that her right arm and hand strength are improving, and that her speech is improving somewhat, but still has difficulty pronouncing words if she is tired. She denies any other complaints at this time. Exam Vital Signs Vital Sign - Last Date Time Temp Pulse Resp B/P Pulse Ox O2 Delivery O2 Flow Rate FiO2 07/28/16 10:50 54 07/28/16 10:16 36.3 18 151/67 95 Room Air Intake and Output 07/27/16 07/27/16 07/28/16 Cumulative From/Thru 15:00 23:00 07:00 07/26/16 17:36 - 07/28/16 06:45 Intake Total 150 ml 800 ml 640 ml 2630 ml Output Total 1250 ml 500 ml 3100 ml Balance 150 ml -450 ml 140 ml -470 ml Intake Oral 800 ml 640 ml 2440 ml IV Total 150 ml 190 ml Output Urine Total 1250 ml 500 ml 3100 ml # Voids 2 2 # Bowel Movements 0 0 Exam General: Alert, Oriented X3, Cooperative, No acute distress Head: Normocephalic, atraumatic. External ears normal. Eyes: PERRLA, EOMI. Anicteric sclerae. Mouth: Mouth normal, Mucous membranes moist/pink Neck: Neck supple with full range of motion. Chest& Lungs: Clear to auscultation bilaterally with no crackles, wheezes, or rhonchi. Cardiovascular: Regular rate/rhythm, Normal S1, Normal S2, No murmurs/rubs/ gallops Abdomen: Non-tender, Non-distended, No masses, Normoactive bowel tones, Soft Musculoskeletal: Normal range of motion Extremities: No cyanosis /edema bilaterally. Mild finger clubbing bilat. Neuro: Mildly dysarthric speech. Strength 4/4 left arm and bilateral lower extremities. Strength 3/4 right upper extremity with wrist drop and parietal drift. Right facial droop with right tongue deviation. Sensation Intact, Finger- Nose and Heel-Dickerson normal, Reflexes Normal Lab and Diagnostics Result Diagram: 07/28/16 0540 07/28/16 0540 Microbiology Name: TIFFAYN BURROUGHS Age/Sex: 70/F Attend Dr: Justino Mckeon MD Acct: [id number] Unit: [id number] Status: ADM IN [place] [facility] [place]07/26[place] Disch: Specimen: [id number] Collected: 07/26/16 Status: RES Req#: [id number] Received: 07/26/16 Source: URINE CC Sp Desc : PP Natasha Dr: Dejan eMyers MD Ordered: URINE CULT Procedure Result Verified Site Microbiology EDDIE CULT URINE Preliminary 07/27/16-741 PRELIMINARY ID GRAM NEGATIVE ROBERTO ID AND SENS TO FOLLOW COLONY COUNT/QUANTITY >100,000 CFU/ml X-Rays, CTs and MRIs CT ANGIO HEAD AND NECK (P) IMPRESSION: 1. Focal, moderate grade stenosis within the inferior cavernous portion of the right internal carotid artery. 2. Mild stenosis of the more superior portions of the cavernous bilateral internal carotid arteries. 3. Apparent occlusion of the origin of the left vertebral artery. There is opacification of the distal left vertebral artery at the level of C3-4 raising the suspicion for retrograde flow through the left vertebral artery. If further characterization is warranted, carotid and vertebral artery duplex is recommended. 4. Extensive deep and periventricular white matter changes likely associated with chronic microvascular ischemia. Dictated by: Radha Kyle M.D. on 07/26/2016 at 19:22 Approved by: Radha Kyle M.D. on 07/26/2016 at 19:45 CT BRAIN (TPA) IMPRESSION: 1. Focal hypodensity within the left frontal lobe suspicious for acute or subacute infarct. If further characterization is warranted, noncontrast MRI of the brain may be helpful. 2. Extensive deep white matter changes likely associated with chronic microvascular ischemic change. These findings were discussed with Dr. Meyers at 5:15 PM on 07/26/16. This study fulfills neurological imaging criteria for inclusion or exclusion of acute stroke therapies based on available published neurological guidelines. Dictated by: Radha Kyle M.D. on 07/26/2016 at 17:16 Approved by: Radha Kyle M.D. on 07/26/2016 at 17:24 Cardiac Echo Impressions Echocardiogram Report Name: TIFFANY BURROUGHS JStudy Date: 07/27/2016 Height: 67 in Hospital Exam Location: [facility] Weight: 172 lb Gender: Other BSA: 1.9 m2 : 1945 Age: 70 yrs BP: 167/79 mmHg Reason For Study: CVA Ordering Physician: Performed By: [facility] Interpretation Summary The left ventricle is normal in size, wall thickness, and systolic function without any focal wall motion abnormalities. The ejection fraction is estimated to be 60-65%. LVEF has not changed significantly. LV wall motion has improved. The right ventricle is normal in size, thickness and function. The right ventricular systolic pressure is estimated at 38 mmHg assuming a right atrial pressure of 3 mm Hg. The left atrium is moderately dilated. The right atrium is mildly dilated. Injection of contrast documented no interatrial shunt. The interatrial septum is intact with no evidence for an atrial septal defect. There is no significant valvular heart disease. The aortic root is normal size. Assessment & Plan Patient is a 70 year old female with a history of smoking and coronary artery disease s/p recent STEMI on 04/22/16 who presents with right facial droop, right upper extremity weakness and dysarthria. Acute ischemic left frontal lobe stroke Patient presents with a left frontal lobe infarct with right sided weakness and speech difficulties. MRI angio showed high grade stenosis/occlusion of the left vertebral artery, with a focal acute to early subacute infarct in the left lira radiata without evidence for hemorrhagic transformation. This stroke occurred while on Aspirin and Plavix, and atorvastatin 80 mg. This is suspicious for cardioembolic stroke vs hypercoagulable state. However, echocardiogram showed no atrial septal defect, normal LV and RV, and moderate left atrial dilation so cardioembolic causes are less likely. She has a family history of clotting disorders associated with malignancy, but has no personal history of malignancy. She recently quit smoking within the month. CXR was fairly unremarkable, but consider chest CT with contrast. We also recommend full hypercoagulability workup. She reports recent weight loss, although this was apparently intentional. Recommend continuous monitoring with telemetry and possible outpatient cardiac monitoring if unrevealing. There is some evidence that suggests use of SSRIs after ischemic stroke may help with motor recovery and reduce dependency. - Continue Aspirin, Plavix, and atorvastatin 80 mg - Hypercoagulability panel pending - Monitor on telemetry - Begin restarting home BP meds, BP goal <140/90 - Regular neurologic checks - Continue physical therapy and occupational therapy - Consider starting SSRI Possible acute seizure The morning of her stroke, the patient woke up and noticed several missing implanted teeth and jaw pain, which is suspicious for seizure upon onset of the stroke. EEG showed sharp waves originating from the left frontal region. Will start pt on Keppra. - Keppra 250 mg PO BID GI Prophylaxis: Not indicated VTE Prophylaxis: Sub-Q Enoxaparin VTE Mechanical Devices: Intermittant Pneumatic CD Resuscitation Status: DNR/DNI:Do Not Resuscitate/Intubate Rufino Pabon Jul 28, 2016 10:54
--- NOTE | 2016-07-28 22:22 | PCM.PNMED ---
Subjective Date of Service Jul 28, 2016 Subjective Patient is complaining of some peripheral visual field abnormalities which improved later in the day. She is able to snap her fingers of her right hand. She still feels some weakness in the right upper extremity including the hand. Exam Vital Signs Vital Sign - Last Date Time Temp Pulse Resp B/P Pulse Ox O2 Delivery O2 Flow Rate FiO2 07/28/16 20:53 36.7 56 18 173/80 97 Room Air Intake and Output 07/27/16 07/27/16 07/28/16 Cumulative From/Thru 15:00 23:00 07:00 07/26/16 17:36 - 07/28/16 06:45 Intake Total 150 ml 800 ml 640 ml 2630 ml Output Total 1250 ml 500 ml 3100 ml Balance 150 ml -450 ml 140 ml -470 ml Intake Oral 800 ml 640 ml 2440 ml IV Total 150 ml 190 ml Output Urine Total 1250 ml 500 ml 3100 ml # Voids 2 2 # Bowel Movements 0 0 Exam General: Patient is in no apparent distress. HEENT: Head is atraumatic and normocephalic. Eyes: Pupils are equally round and reactive to light and accommodation. Extraocular muscles are intact. Sclera are white, anicteric. Subconjunctival mucosa is pink. Ears and nose are unremarkable. Oropharynx: There is no mucosal lesions, there is no thrush, there is no pharyngitis. Neck: Is supple, there are no nodes, or masses or tenderness. Chest: Is clear to auscultation and percussion. There are no rales, rhonchi, wheezes or rubs. Heart: Rate, rhythm is regular. There is no murmur, rub or gallop. Abdomen: Good bowel sounds are present. Abdomen is soft, nontender, no organomegaly or masses were appreciated. Extremities: Are symmetrical and well perfused. There is no edema, there is no cellulitis, no rash. Neurologic: Patient's speech is less slurred. She has slight improvement in right facial droop. Right upper extremity strength is 3 over 4, but slightly improved. Left upper extremity and bilateral lower extremity strength is 4 out of 4. There is no dysmetria Psychiatric: Patients mood is calm and shows no sign of agitation. Genital: Deferred Rectal: Deferred Lab and Diagnostics Result Diagram: 07/28/1640 07/28/16 0540 Microbiology Name: TIFFANY BURROUGHS Age/Sex: 70/F Attend Dr: Justino Mckeon MD Acct: [id number] Unit: [id number] Status: ADM IN Location: [facility] [place] 3010-1 Re07/26/16 Disch: Specimen: [id number] Collected: 07/26/16 Status: RES Req#: [id number] Received: 07/26/16 Source: URINE ALFONSO Sp Desc : SYD Kaur Dr: Dejan Meyers MD Ordered: URINE CULT Procedure Result Verified Site Microbiology EDDIE CULT URINE Preliminary 07/27/16-0742 PRELIMINARY ID GRAM NEGATIVE ROBERTO ID AND SENS TO FOLLOW COLONY COUNT/QUANTITY >100,000 CFU/ml X-Rays, CTs and MRIs CT ANGIO HEAD AND NECK (P) IMPRESSION: 1. Focal, moderate grade stenosis within the inferior cavernous portion of the right internal carotid artery. 2. Mild stenosis of the more superior portions of the cavernous bilateral internal carotid arteries. 3. Apparent occlusion of the origin of the left vertebral artery. There is opacification of the distal left vertebral artery at the level of C3-4 raising the suspicion for retrograde flow through the left vertebral artery. If further characterization is warranted, carotid and vertebral artery duplex is recommended. 4. Extensive deep and periventricular white matter changes likely associated with chronic microvascular ischemia. Dictated by: Radha Kyle M.D. on 07/26/2016 at 19:22 Approved by: Radha Kyle M.D. on 07/26/2016 at 19:45 CT BRAIN (TPA) IMPRESSION: 1. Focal hypodensity within the left frontal lobe suspicious for acute or subacute infarct. If further characterization is warranted, noncontrast MRI of the brain may be helpful. 2. Extensive deep white matter changes likely associated with chronic microvascular ischemic change. These findings were discussed with Dr. Meyers at 5:15 PM on 07/26/16. This study fulfills neurological imaging criteria for inclusion or exclusion of acute stroke therapies based on available published neurological guidelines. Dictated by: Radha Kyle M.D. on 07/26/2016 at 17:16 Approved by: Radha Kyle M.D. on 07/26/2016 at 17:24 Cardiac Echo Impressions Echocardiogram Report Name: TIFFANY BURROUGHS JStudy Date: 07/27/2016 Height: 67 in Hospital Exam [place] [facility] [place] Weight: 172 lb Gender: Other BSA: 1.9 m2 : 1945 Age: 70 yrs BP: 167/79 mmHg Reason For Study: CVA Ordering Physician: Performed By: [facility] [place] Interpretation Summary The left ventricle is normal in size, wall thickness, and systolic function without any focal wall motion abnormalities. The ejection fraction is estimated to be 60-65%. LVEF has not changed significantly. LV wall motion has improved. The right ventricle is normal in size, thickness and function. The right ventricular systolic pressure is estimated at 38 mmHg assuming a right atrial pressure of 3 mm Hg. The left atrium is moderately dilated. The right atrium is mildly dilated. Injection of contrast documented no interatrial shunt. The interatrial septum is intact with no evidence for an atrial septal defect. There is no significant valvular heart disease. The aortic root is normal size. Assessment & Plan 70-year-old female with past medical history remarkable for recent STEMI presents with right upper extremity weakness and facial droop with noted dysarthria. # Acute Ischemic cerebrovascular accident - Patient presented outside the standard window for possible TPA at presentation in the ED - Patient had a recent echocardiogram for a acute myocardial infarction without evidence of atrial fibrillation or septal defect - Patient has been on both aspirin and Plavix as well as high-dose atorvastatin given her recent myocardial infarction with percutaneous intervention - Patient recently quit smoking 3 weeks prior - Neurology consulted and appreciate their time and expertise. - Continue outpatient medications including aspirin full dose daily, Plavix 75 mg daily, atorvastatin 40 mg at night - Echocardiogram with bubble study fails to reveal source of cerebrovascular accident - Continue Telemetry monitoring to monitor for possible atrial fibrillation - MR head and neck angiogram was significant for: "Segmental occlusion or high- grade stenosis of the left vertebral artery as described. No stenosis in the carotid bulbs". - The patient will be allowed permissive hypertension for approximately 24 hours with goal systolic blood pressure between 140 and 170, the patient will have her typical outpatient antihypertensives held for 24 hours. We will reveals restart patient's lisinopril - Labetalol and hydralazine available when necessary for extreme elevations in systolic blood pressure - Patient will be started on a SSRI Fluoxetine per Uptodate recommendations post CVA - Given family history of blood clots on maternal side will order hypercoagulable panels including antiphospholipid, complements 3 and 4, factor V activity, anticardiolipin, etc. - Patient does not seem to be a candidate for inpatient rehabilitation at this time given her subjective recovery of function # History of recent ST segment elevation myocardial infarction - Diagnosed in April 2016 with occluded right coronary ostium and this was successfully treated with two drug-eluting stents. - Patient states she has been compliant with all of her medications - Continue home medications including aspirin, Plavix, atorvastatin described above - Okay to continue atenolol as it has very limited effect on blood pressure - Repeat echocardiogram with bubble study failed to reveal any significant findings. Pain Evaluation: Adequate Pain Control GI Prophylaxis: Not indicated VTE Prophylaxis: Sub-Q Enoxaparin VTE Mechanical Devices: Intermittant Pneumatic CD Resuscitation Status: DNR/DNI:Do Not Resuscitate/Intubate Thanh Gr MD Jul 28, 2016 22:22
[2016-07-29 01:27] VITALS: BP 159/82; PULSE 56; RESP 18; O2SAT 95
[2016-07-29 05:57] VITALS: PULSE 50
[2016-07-29 06:20] LABS: BASOPHILS % (AUTO) 0.3 % (0-3); EOSINOPHILS % (AUTO) 1.8 % (0-5); MONOCYTES % (AUTO) 7.7 % (4-12); Mean Corpuscular Hemoglobin 29.3 pg (27.0-35.0); Mean Corpuscular Volume 90.1 fL (81-100); Platelet Count 223 bil/L (150-400)
[2016-07-29 06:32] VITALS: BP 189/92; PULSE 58; RESP 18; O2SAT 95
[2016-07-29 06:38] LABS: Magnesium 1.9 mg/dL (1.6-2.6)
[2016-07-29 07:46] VITALS: BP 166/71; PULSE 54; RESP 19; O2SAT 94
[2016-07-29] MEDS ORDERED: levoFLOXacin 500 mg Tablet PO SCH (07:50)
[2016-07-29] MEDS ORDERED: Potassium Chloride 20 mEq SR Tablet PO ONE (09:45)
[2016-07-29 12:21] VITALS: BP 125/77; PULSE 54; RESP 18; O2SAT 95
[2016-07-29 14:13] LABS: Perinuclear (P-ANCA) <1:20 titer (Neg:<1:20)
--- NOTE | 2016-07-29 15:09 | PCM.DIMED ---
Discharge Instructions Date of Service Jul 29, 2016 Dates of Hospitalization Jul 26, 2016 at 19:30 Discharge Diagnosis Discharge Diagnosis Cerebral Vascular Accident Diet Discharge Diet: Heart Healthy Activity Discharge Activity: No restrictions (The patient may increase to her usual daily activity gradually as tolerated.) Call your provider Call your provider for: Fever or Chills, Shortness of breath, Bleeding, Chest pain, Vomitting, Excessive diarrhea, Weakness (unilateral) Patient Instructions Follow-up with PCP in: 1 week (Patient to follow up with PCP Chrissy Barillas in [facility]) Provider: Dae Bustillo MD Follow-up in: 2 weeks Thanh Gr MD Jul 29, 2016 15:09
[2016-07-29] MEDS ORDERED: LEVO500T16 PO (15:31)
[2016-07-29] MEDS ORDERED: KEPP250T PO (15:31)
[2016-07-29] MEDS ORDERED: FLUO20CA25 PO (15:31)
[2016-07-29] MEDS ORDERED: ASPI325T32 PO (15:31)
[2016-07-29 16:37] VITALS: BP 131/80; PULSE 52; RESP 19; O2SAT 97
--- NOTE | 2016-07-29 17:23 | PCM.PNMED ---
Subjective Date of Service Jul 29, 2016 Subjective Neurology Consult Note Patient is a 70 year old female with a history of smoking and coronary artery disease s/p recent STEMI on 04/22/16 who presents with right facial droop, right upper extremity weakness and dysarthria. She reports she quit smoking 3 weeks ago and was taking Aspirin and Plavix at the time of this episode. She reports a family history of blood clots in her mother and maternal aunt, both of whom were diagnosed with cancer. Patient reported black spots/streaks in her left peripheral vision yesterday, which lasted 3-4 hours and have since resolved. She states she has been practicing her speech and handwriting, and notes some improvement. She still has right arm weakness and right hand drift. She reports no difficulties with ambulation, and has no other complaints at this time. Exam Vital Signs Vital Sign - Last Date Time Temp Pulse Resp B/P Pulse Ox O2 Delivery O2 Flow Rate FiO2 07/29/16 12:21 36.5 54 18 125/77 95 Room Air Intake and Output 07/28/16 07/28/16 07/29/16 Cumulative From/Thru 15:00 23:00 07:00 07/26/16 17:36 - 07/28/16 19:24 Intake Total 636 ml 3266 ml Output Total 650 ml 3750 ml Balance -14 ml -484 ml Intake Oral 636 ml 3076 ml IV Total 190 ml Output Urine Total 650 ml 3750 ml # Voids 2 # Bowel Movements 2 2 Exam General: Alert, Oriented X3, Cooperative, No acute distress Head: Normocephalic, atraumatic. External ears normal. Eyes: PERRLA, EOMI. Anicteric sclerae. Mouth: Mouth normal, Mucous membranes moist/pink Neck: Neck supple with full range of motion. Chest& Lungs: Clear to auscultation bilaterally with no crackles, wheezes, or rhonchi. Cardiovascular: Regular rate/rhythm, Normal S1, Normal S2, No murmurs/rubs/ gallops Abdomen: Non-tender, Non-distended, No masses, Normoactive bowel tones, Soft Musculoskeletal: Normal range of motion Extremities: No cyanosis /edema bilaterally. Mild finger clubbing bilat. Neuro: Mildly dysarthric speech, improved from yesterday. Strength 4/4 left arm and bilateral lower extremities. Strength 3/4 right upper extremity with wrist drop and parietal drift. Right facial droop with tongue midline. Sensation Intact, Finger-Nose and Heel-Dickerson normal, Reflexes Normal Lab and Diagnostics Result Diagram: 07/29/16 0550 07/29/16 0550 Microbiology Name: TIFFANY BURROUGHS Age/Sex: 70/F Attend Dr: Justino Mckeon MD Acct: [id number] Unit: [id number] Status: ADM IN Location: [facility] [place] 3010-1 Re07/26/16 Disch: Specimen: [id number] Collected: 07/26/16 Status: RES Req#: [id number] Received: 07/26/16 Source: URINE CC Sp Desc : PP Natasha Dr: Dejan Meyers MD Ordered: URINE CULT Procedure Result Verified Site Microbiology EDDIE CULT URINE Preliminary 07/27/16-741 PRELIMINARY ID GRAM NEGATIVE ROBERTO ID AND SENS TO FOLLOW COLONY COUNT/QUANTITY >100,000 CFU/ml X-Rays, CTs and MRIs CT ANGIO HEAD AND NECK (P) IMPRESSION: 1. Focal, moderate grade stenosis within the inferior cavernous portion of the right internal carotid artery. 2. Mild stenosis of the more superior portions of the cavernous bilateral internal carotid arteries. 3. Apparent occlusion of the origin of the left vertebral artery. There is opacification of the distal left vertebral artery at the level of C3-4 raising the suspicion for retrograde flow through the left vertebral artery. If further characterization is warranted, carotid and vertebral artery duplex is recommended. 4. Extensive deep and periventricular white matter changes likely associated with chronic microvascular ischemia. Dictated by: Radha Kyle M.D. on 07/26/2016 at 19:22 Approved by: Radha Kyle M.D. on 07/26/2016 at 19:45 CT BRAIN (TPA) IMPRESSION: 1. Focal hypodensity within the left frontal lobe suspicious for acute or subacute infarct. If further characterization is warranted, noncontrast MRI of the brain may be helpful. 2. Extensive deep white matter changes likely associated with chronic microvascular ischemic change. These findings were discussed with Dr. Meyers at 5:15 PM on 07/26/16. This study fulfills neurological imaging criteria for inclusion or exclusion of acute stroke therapies based on available published neurological guidelines. Dictated by: Radha Kyle M.D. on 07/26/2016 at 17:16 Approved by: Radha Kyle M.D. on 07/26/2016 at 17:24 Cardiac Echo Impressions Echocardiogram Report Name: TIFFANY BURROUGHS JStudy Date: 07/27/2016 Height: 67 in Hospital Exam Location: [facility] Weight: 172 lb Gender: Other BSA: 1.9 m2 : 1945 Age: 70 yrs BP: 167/79 mmHg Reason For Study: CVA Ordering Physician: Performed By: [facility]ie Avalos [facility] Interpretation Summary The left ventricle is normal in size, wall thickness, and systolic function without any focal wall motion abnormalities. The ejection fraction is estimated to be 60-65%. LVEF has not changed significantly. LV wall motion has improved. The right ventricle is normal in size, thickness and function. The right ventricular systolic pressure is estimated at 38 mmHg assuming a right atrial pressure of 3 mm Hg. The left atrium is moderately dilated. The right atrium is mildly dilated. Injection of contrast documented no interatrial shunt. The interatrial septum is intact with no evidence for an atrial septal defect. There is no significant valvular heart disease. The aortic root is normal size. Assessment & Plan Patient is a 70 year old female with a history of smoking and coronary artery disease s/p recent STEMI on 04/22/16 who presents with right facial droop, right upper extremity weakness and dysarthria. Acute ischemic left frontal lobe stroke Patient presents with a left frontal lobe infarct with right sided weakness and speech difficulties. MRI angio showed high grade stenosis/occlusion of the left vertebral artery, with a focal acute to early subacute infarct in the left lira radiata without evidence for hemorrhagic transformation. This stroke occurred while on Aspirin and Plavix, and atorvastatin 80 mg. This is suspicious for cardioembolic stroke vs hypercoagulable state. However, echocardiogram showed no atrial septal defect, normal LV and RV, and moderate left atrial dilation so cardioembolic causes are less likely. She has a family history of clotting disorders associated with malignancy, but has no personal history of malignancy. She recently quit smoking within the month. CXR was fairly unremarkable. CT chest with contrast was negative for malignancy. Hypercoagulability workup pending. Recommend outpatient cardiac monitoring as telemetry was unrevealing. There is some evidence that suggests use of SSRIs after ischemic stroke may help with motor recovery and reduce dependency. - Continue Aspirin, Plavix, and atorvastatin 80 mg - Hypercoagulability panel pending - follow up outpatient - BP goal <140/90 - Consider starting SSRI - Close follow up with primary care physician. Possible acute seizure The morning of her stroke, the patient woke up and noticed several missing implanted teeth and jaw pain, which is suspicious for seizure upon onset of the stroke. EEG showed sharp waves originating from the left frontal region. - Keppra 250 mg PO BID Patient was discharged before being seen by attending. GI Prophylaxis: Not indicated VTE Prophylaxis: Sub-Q Enoxaparin VTE Mechanical Devices: Intermittant Pneumatic CD Resuscitation Status: DNR/DNI:Do Not Resuscitate/Intubate Rufino Pabon Jul 29, 2016 12:39
[2016-07-29 20:10] LABS: Protein C-Functional 106 % (73-180)
--- NOTE | 2016-07-30 01:30 | PCM.DC.MED ---
Discharge Summary Date of Service Jul 29, 2016 Dates of Hospitalization Date of Hospital Admission Jul 26, 2016 at 19:30 Date of Discharge: Jul 29, 2016 Providers: Admitting Physician: Justino Mckeon MD Primary Care Physician: Nopcp Attending Physician: Justino Mckeon MD Diagnosis at Time of Discharge Diagnosis at Time of Discharge Cerebral Vascular Accident Procedures XRay, CTs & MRIs CT ANGIO HEAD AND NECK (P) IMPRESSION: 1. Focal, moderate grade stenosis within the inferior cavernous portion of the right internal carotid artery. 2. Mild stenosis of the more superior portions of the cavernous bilateral internal carotid arteries. 3. Apparent occlusion of the origin of the left vertebral artery. There is opacification of the distal left vertebral artery at the level of C3-4 raising the suspicion for retrograde flow through the left vertebral artery. If further characterization is warranted, carotid and vertebral artery duplex is recommended. 4. Extensive deep and periventricular white matter changes likely associated with chronic microvascular ischemia. Dictated by: Radha Kyle M.D. on 07/26/2016 at 19:22 Approved by: Radha Kyle M.D. on 07/26/2016 at 19:45 CT BRAIN (TPA) IMPRESSION: 1. Focal hypodensity within the left frontal lobe suspicious for acute or subacute infarct. If further characterization is warranted, noncontrast MRI of the brain may be helpful. 2. Extensive deep white matter changes likely associated with chronic microvascular ischemic change. These findings were discussed with Dr. Meyers at 5:15 PM on 07/26/16. This study fulfills neurological imaging criteria for inclusion or exclusion of acute stroke therapies based on available published neurological guidelines. Dictated by: Radha Kyle M.D. on 07/26/2016 at 17:16 Approved by: Radha Kyle M.D. on 07/26/2016 at 17:24 Cardiac Echo Impression Echocardiogram Report Name: TIFFANY BURROUGHS JStudy Date: 0 07/27/2016 Height: 67 in Hospital Exam Location: [facility] Weight: 172 lb Gender: Other BSA: 1.9 m2 : 1945 Age: 70 yrs BP: 167/79 mmHg Reason For Study: CVA Ordering Physician: Performed By: Angie [facility]Sher[facility] Interpretation Summary The left ventricle is normal in size, wall thickness, and systolic function without any focal wall motion abnormalities. The ejection fraction is estimated to be 60-65%. LVEF has not changed significantly. LV wall motion has improved. The right ventricle is normal in size, thickness and function. The right ventricular systolic pressure is estimated at 38 mmHg assuming a right atrial pressure of 3 mm Hg. The left atrium is moderately dilated. The right atrium is mildly dilated. Injection of contrast documented no interatrial shunt. The interatrial septum is intact with no evidence for an atrial septal defect. There is no significant valvular heart disease. The aortic root is normal size. Brief History The patient is a 70-year-old female with past medical history remarkable for recent STEMI, presents with right upper extremity weakness and noted dysarthria. The patient states that she went to bed the night prior to admission and at approximately 3 AM after reading a book and woke up this morning to find herself with difficulty using her right hand as well as drooling out of her mouth bilaterally and trouble pronouncing words. The patient states that while she was brushing her teeth in the mirror in the morning she noticed these at approximately 10 AM. The patient states that she is also woke up missing several implanted teeth and has been unable to locate them either. The patient denies any difficulty with ambulating including this morning. She states that she is recovered a lot of function in her right arm as well as she is speaking significantly more clearly than this morning. The patient states that she quit smoking approximately 3 weeks ago and has been taking her daily aspirin and Plavix for her recent heart attack. The patient has several family members including her mother and her maternal aunt who had blood clots in the past however both women were also diagnosed with cancer as well. The patient's father had a congenital heart defect of unknown etiology. She denies any recent leg swelling with associated pain and skin color changes. The patient denies any recent surgeries or other immobilization. The patient was admitted to the hospitalist service for further evaluation and treatment. Hospital Course 70-year-old female with past medical history remarkable for recent STEMI presents with right upper extremity weakness and facial droop with noted dysarthria. # Acute Ischemic cerebrovascular accident - Patient presented outside the standard window for possible TPA at presentation in the ED - Patient had a recent echocardiogram for a acute myocardial infarction without evidence of atrial fibrillation or septal defect - Patient has been on both aspirin and Plavix as well as high-dose atorvastatin given her recent myocardial infarction with percutaneous intervention - Patient recently quit smoking 3 weeks prior - Neurology consulted and appreciate their time and expertise. - Continue outpatient medications including aspirin full dose daily, Plavix 75 mg daily, atorvastatin 40 mg at night - Echocardiogram with bubble study fails to reveal source of cerebrovascular accident - Continue Telemetry monitoring to monitor for possible atrial fibrillation - MR head and neck angiogram was significant for: "Segmental occlusion or high- grade stenosis of the left vertebral artery as described. No stenosis in the carotid bulbs". - The patient will be allowed permissive hypertension for approximately 24 hours with goal systolic blood pressure between 140 and 170, the patient will have her typical outpatient antihypertensives held for 24 hours. We will reveals restart patient's lisinopril - Labetalol and hydralazine available when necessary for extreme elevations in systolic blood pressure - Patient will be started on a SSRI Fluoxetine per Uptodate recommendations post CVA - Given family history of blood clots on maternal side will order hypercoagulable panels including antiphospholipid, complements 3 and 4, factor V activity, anticardiolipin, etc. - Patient does not seem to be a candidate for inpatient rehabilitation at this time given her subjective recovery of function # History of recent ST segment elevation myocardial infarction - Diagnosed in April 2016 with occluded right coronary ostium and this was successfully treated with two drug-eluting stents. - Patient states she has been compliant with all of her medications - Continue home medications including aspirin, Plavix, atorvastatin described above - Okay to continue atenolol as it has very limited effect on blood pressure - Repeat echocardiogram with bubble study failed to reveal any significant findings. Exam Vital Signs (Last) Date Time Temp Pulse Resp B/P Pulse Ox O2 Delivery O2 Flow Rate FiO2 07/29/16 16:37 36.4 52 19 131/80 97 Room Air Exam General: Patient is in no apparent distress. HEENT: Head is atraumatic and normocephalic. Eyes: Pupils are equally round and reactive to light and accommodation. Extraocular muscles are intact. Sclera are white, anicteric. Subconjunctival mucosa is pink. Ears and nose are unremarkable. Oropharynx: There is no mucosal lesions, there is no thrush, there is no pharyngitis. Neck: Is supple, there are no nodes, or masses or tenderness. Chest: Is clear to auscultation and percussion. There are no rales, rhonchi, wheezes or rubs. Heart: Rate, rhythm is regular. There is no murmur, rub or gallop. Abdomen: Good bowel sounds are present. Abdomen is soft, nontender, no organomegaly or masses were appreciated. Extremities: Are symmetrical and well perfused. There is no edema, there is no cellulitis, no rash. Neurologic: Patient's speech is less slurred. She has slight improvement in right facial droop. Right upper extremity strength is 3 over 4, but slightly improved. Left upper extremity and bilateral lower extremity strength is 4 out of 4. There is no dysmetria Psychiatric: Patients mood is calm and shows no sign of agitation. Genital: Deferred Rectal: Deferred Test 07/26/16 17:13 07/26/16 19:15 07/27/16 05:15 07/28/16 05:40 Prothrombin Time 10.2sec (8.1-12.5) Prothromb Time International Ratio 0.95ratio Activated Partial Thromboplast Time 22.2sec (22.8-33.0) Hemoglobin A1c 6.3% (4.8-5.6) Troponin T < 0.010ug/L (0.0-0.011) Triglycerides Level 144mg/dL (0-149) Cholesterol Level 166mg/dL (100-199) LDL Cholesterol, Calculated 89.200mg/dL (0-99) VLDL Cholesterol 28.800mg/dL HDL Cholesterol 48mg/dL (>39) Cholesterol/HDL Ratio 3.46 (0.0-4.4) Urine Color Straw (YELLOW) Urine Appearance Hazy (CLEAR,HAZY) Urine pH 6.0 (5.0-8.0) Urine Specific [place] 1.005 (1.003-1.035) Urine Protein Negativemg/dL (NEG,TRACE) Urine Glucose (UA) Negativemg/dL (NEGATIVE) Urine Ketones Negativemg/dL (NEGATIVE) Urine Occult Blood Negative (NEGATIVE) Urine Nitrite Positive (NEGATIVE) Urine Bilirubin Negative (NEGATIVE) Urine Urobilinogen Normalmg/dL (NORMAL) Urine Leukocyte Esterase Negative (NEGATIVE) Urine RBC 0-2/hpf (0-2) Urine WBC 0-5/hpf (0-5) Urine Epithelial Cells Occasional/hpf (NONE-MOD) Urine Crystals None seen (NONE SEEN) Urine Bacteria Many/hpf (NONE-FEW) Urine Hyaline Casts None/lpf (NONE) Urine Granular Casts None seen (NONE SEEN) Urine Waxy Casts None seen (NONE SEEN) Urine Red Blood Cell Casts None seen (NONE SEEN) Urine White Blood Cell Casts None seen (NONE SEEN) Urine Mucus None seen (None Seen) Urine Trichomonas None seen (NONE SEEN) Urine Yeast None (NONE SEEN) Urinalysis Comment None Urine Culture Reflexed Indicated Erythrocyte Sedimentation Rate 17mm/hr (0-40) Plasminogen Activity 105% (70-150) Functional Protein C 106% (73-180) Functional Protein S 105% (63-140) Anti-Thrombin III Activity 101% (75-135) Anti-Nuclear Antibody Screen Negative (Negative) Cytoplasmic ANCA (c-ANCA) Antibody <1:20titer (Neg:<1:20) Atypical p-ANCA <1:20titer (Neg:<1:20) Perinuclear ANCA (p-ANCA) Antibody <1:20titer (Neg:<1:20) Anti-Cardiolipin IgG Antibody < 9GPL U/mL (0-14) Anti-Cardiolipin IgA Antibody < 9APL U/mL (0-11) Complement C3 132mg/dL (82-167) Complement C4 26mg/dL (14-44) Rapid Plasma Reagin Non reactive (Non Reactive) Procalcitonin 0.02ng/mL (0.00-0.08) Test 07/29/16 05:50 White Blood Count 7.7th/mm3 (3.8-10.1) Red Blood Count 4.34mil/mm3 (3.90-5.20) Hemoglobin 12.7g/dL (12.0-15.6) Hematocrit 39.1% (35.0-46.0) Mean Corpuscular Volume 90.1fL (81-100) Mean Corpuscular Hemoglobin 29.3pg (27.0-35.0) Mean Corpuscular Hemoglobin Concent 32.5% (32.0-37.0) Red Cell Distribution Width 15.7% (12.3-15.4) Platelet Count 223bil/L (150-400) Neutrophils (%) (Auto) 61.0% (40-74) Lymphocytes (%) (Auto) 28.9% (14-46) Monocytes (%) (Auto) 7.7% (4-12) Eosinophils (%) (Auto) 1.8% (0-5) Basophils (%) (Auto) 0.3% (0-3) Sodium Level 144mEq/L (134-144) Potassium Level 3.4mEq/L (3.5-5.2) Chloride Level 108mEq/L (97-108) Carbon Dioxide Level 23mmol/L (18-29) Blood Urea Nitrogen 12mg/dL (8-27) Creatinine 0.76mg/dL (0.57-1.00) Estimat Glomerular Filtration Rate 107mL/min (>59) Glucose Level 103mg/dL (60-99) Calcium Level 9.2mg/dL (8.5-10.1) Magnesium Level 1.9mg/dL (1.6-2.6) Total Bilirubin 0.3mg/dL (0.0-1.2) Aspartate Amino Transf (AST/SGOT) 22U/L (0-50) Alanine Aminotransferase (ALT/SGPT) 19U/L (0-32) Alkaline Phosphatase 95U/L (25-165) Total Protein 6.0g/dL (6.4-8.4) Albumin 3.8g/dL (3.4-5.0) Microbiology Results Name: TIFFANY BURROUGHS Age/Sex: 70/F Attend Dr: Justino Mckeon MD Acct: [id number] Unit: [id number] Status: ADM IN Location: [facility] [place] [facility] [place] 3010-1 Re07/26/16 Disch: Specimen: [id number] Collected: 07/26/16 Status: RES Req#: [id number] Received: 07/26/16 Source: URINE CC Sp Desc : SYD Kaur Dr: Dejan Meyers MD Ordered: URINE CULT Procedure Result Verified Site Microbiology EDDIE CULT URINE Preliminary 07/27/16-741 PRELIMINARY ID GRAM NEGATIVE ROBERTO ID AND SENS TO FOLLOW COLONY COUNT/QUANTITY >100,000 CFU/ml Discharge Medications Discharge Medications Aspirin (Aspirin) 325 Mg Tablet 325 MG PO DAILY Prescribed by: LUPILLO GR MD Atenolol (Atenolol) 50 Mg Tablet 50 MG PO DAILY Prescribed by: ROSE HUGGINS MD Atorvastatin Calcium (Atorvastatin Calcium) 40 Mg Tablet 40 MG PO HS Prescribed by: ROSE HUGGINS MD Clopidogrel (Clopidogrel) 75 Mg Tablet 75 MG PO DAILY Prescribed by: ROSE HUGGINS MD Fluoxetine (Fluoxetine) 20 Mg Capsule 20 MG PO DAILY Prescribed by: LUPILLO GR MD Levetiracetam (Keppra) 250 Mg Tablet 250 MG PO BID Prescribed by: LUPILLO GR MD Levofloxacin (Levaquin) 500 Mg Tablet 500 MG PO DAILY@07 Prescribed by: LUPILLO GR MD Lisinopril (Lisinopril) 5 Mg Tablet 10 MG PO QAM (Reported) As needed Melatonin (Melatonin) 3 Mg Tablet 3 MG PO HS PRN PRN Insomnia (Reported) Nitroglycerin SL (Nitroglycerin SL) 0.4 Mg Tab.subl 0.4 MG SL Q5MIN PRN PRN For Chest Pain (Reported) Followup Plan Disposition: Patient was discharged home. Discharge Diet: Heart Healthy Discharge Activity: No restrictions (The patient may increase to her usual daily activity gradually as tolerated.) Follow-up with PCP in: 1 week (Patient to follow up with PCP Chrissy Barillas in [facility]) Provider: Dae Bustillo MD Follow-up in: 2 weeks Time spent Time spent on discharging this patient was greater than 35 minutes, over half of which was involved in counseling and coordination of care. Thanh Gr MD Jul 30, 2016 01:30
[2016-07-30 05:10] LABS: dRVVT 47.6 sec (0.0-47.0)
--- NOTE | 2016-07-30 16:16 | PROCED ---
[address] [address] EEG PATIENT: TIFFANY BURROUGHS : 1945 MR#: [id number] ADMIT: 07/26/2016 JOB ID: [id number] DATE OF SERVICE: 07/28/2016 HISTORY: The patient is a 70-year-old woman with a history of an episode of loss of consciousness associated with biting resulting in dislodgement of several teeth. TECHNICAL DESCRIPTION: This digital EEG was recorded using 25 scalp and ear, and two EKG electrodes. It was reviewed in bipolar and referential montages following reformatting in the 10-20 International Electrode Placement System. During the recording, the patient was noted to be awake and drowsy. The background was composed of a 7-8 hertz, 20-50 microvolt, symmetrical and reactive posterior dominant rhythm that attenuated with eye opening. The rest of the background was composed of low voltage faster frequencies. There was intermittent sharply contoured slowing over the left temporal head region suggestive of an underlying focal functional or structural defect with epileptogenic potential. No seizures were seen. The rest of the background was composed of low voltage faster frequencies. The sharply contoured slowing that appeared intermittently was most prominent at T3 and T5. Hyperventilation was not performed. Photic stimulation from 1-30 hertz did not elicit any photic driving response. Her EKG lead was remarkable for bradycardia with a heart rate ranging between 40 and 60, however with no apparent arrhythmias. Toward the end of the recording the degree of artifact was noted to have increased, principally over the left frontal head region. However, this was also noted over the right frontal head region. This was noted to be artifactual in nature. No sleep was appreciated. IMPRESSION: This EEG performed in the awake and drowsy states is abnormal. The intermittent, sharply contoured slowing over the left temporal head region is suggestive of an underlying focal or functional defect with focal functional or structural defect with epileptogenic potential. Clinical and/or neuro imaging correlation is advised. No seizures were seen during this recording. Clinical correlation is advised. The results were relayed to the ordering provider and the patient was placed on Keppra.
== END 2016-07-29 17:12 | disposition home or self-care (01) | DRG 66 ==
LOC: SED 17:02 → EDBD 17:02 → EDUNIT# 17:02 → MPC 19:30
PROVIDERS: ADMIT Hospitalist; ATTEND Hospitalist
PROC: 4A00X4Z Measurement of Central Nervous Electrical Activity, External Approach (ICD-10-PCS; principal; 2016-07-28)
DX: I63.212 Cerebral infarction due to unspecified occlusion or stenosis of left vertebral artery (principal); R29.810 Facial weakness; Z95.5 Presence of coronary angioplasty implant and graft; I25.2 Old myocardial infarction; Z79.82 Long term (current) use of aspirin; Z87.891 Personal history of nicotine dependence; R47.1 Dysarthria and anarthria; Z66 Do not resuscitate; Z79.01 Long term (current) use of anticoagulants; M62.81 Muscle weakness (generalized); R47.9 Unspecified speech disturbances